=== PATIENT | female | born 1930 | race Caucasian/White ===

== ENCOUNTER 2016-07-14 02:45 | Emergency (ER) | payer MEDICARE ==
[~2016-07-14] VITALS: Ht 165.1 cm; Wt 63.6 kg
[~2016-07-14 02:45] MED LIST: ACET-2605 PO; BUPR150T12 PO; CHOL100045 PO; CIPR-231 PO; CLOP75TA3 PO; DONE10TA42 PO; FUR20 PO; ISOS30TA4 PO; LEVO112T4 PO; LISI-571 PO; LORA1TAB PO; MAGN400C PO; METF500T4 PO; METO50TA3 PO; NAM10 PO
[2016-07-14 02:46] VITALS: BP 159/78; PULSE 68; RESP 16; O2SAT 98
--- NOTE | 2016-07-14 02:54 | ED.REPORT ---
HPI-Chest Pain 40 and Over Date of Service Jul 14, 2016 ED Provider: Jose Veronica MD Patient is a 85 year old female with a history of diabetes mellitus, hyperlipidemia, hypertension, multiple myeloma, chronic kidney disease, and coronary artery disease s/p CABG 4x and cardiac stenting who presents to the ED after she awoke from sleep with substernal chest pressure at 1:30am this morning. She reports associated radiation of her pain into her left arm, with dizziness and light headedness. Her pain is improved on arrival to the ED, following consumption of 81mg Aspirin. She denies shortness of breath, nausea, vomiting, cough, fever, or chills. Patient reports having swelling in her left leg at baseline. Patient states that her symptoms are similar to when she previously had a CABG 4x performed. Nursing Notes Stated Complaint: CHEST PAIN/LEFT ARM PAIN Chief Complaint: Chest Pain Nursing Notes Reviewed: Yes Allergies: Coded Allergies: dipyridamole (Verified Allergy, Severe, 07/14/16) Sulfa (Sulfonamide Antibiotics) (Unverified Allergy, Unknown, 07/14/16) Uncoded Allergies: VASODILATING AGENTS (Allergy, Unknown, 05/02/04) Scheduled Acetaminophen/Diphenhydramine (Tylenol Pm Ex-Strength Caplet) 500 Mg-25 Mg Tablet 1 EACH PO HS Bupropion ER (Bupropion ER) 150 Mg Tablet.er 150 MG PO BID Cholecalciferol (Vitamin D3) (Vitamin D) 1,000 Unit Capsule 2,000 UNIT PO DAILY Ciprofloxacin (Cipro) 500 Mg Tablet 500 MG PO BID Clopidogrel Bisulfate (Plavix) 75 Mg Tablet 75 MG PO DAILY Donepezil (Donepezil) 10 Mg Tablet 10 MG PO HS Furosemide (Furosemide) 20 Mg Tab 20 MG PO DAILY Isosorbide MN ER (Isosorbide MN ER) 30 Mg Tab.er.24h 30 MG PO DAILY Levothyroxine (Levothyroxine) 112 Mcg Tablet 112 MCG PO DAILY Lisinopril (Lisinopril) 5 Mg Tablet 10 MG PO BID Magnesium Oxide (Magnesium) 400 Mg Capsule 400 MG PO HS Memantine (Namenda) 10 Mg Tablet 5 MG PO BID Metformin (Metformin) 500 Mg Tablet 500 MG PO BID Metoprolol Tartrate (Metoprolol Tartrate) 50 Mg Tablet 50 MG PO BID Scheduled PRN Lorazepam (Lorazepam) 1 Mg Tablet 1 MG PO HS PRN PRN For Insomnia General Time Seen by MD: 02:52 Chief Complaint Chest pain Hx Obtained From: Patient Arrived By: Walk-in Sudden in Onset?: Yes Onset Occurred: Just prior to arrival Symptom Duration: Since onset Location: : Substernal Quality: Painful Severity: Current: Mild Severity: Maximum: Moderate Recent Healthcare: No recent doctor visit, No recent hospitalization Similar Sx Previous: Yes Past Medical History Past Medical History Coronary artery disease, status post cardiac bypass in 1994 and stent placement in 2005. multiple myeloma chronic anemia thrombocytopenia hyperplastic colon polyps hypothyroidism anxiety chronic kidney disease Reports: Diabetes mellitus, Hyperlipidemia, Hypertension Reports: Thyroid disease Past Surgical History back surgery breast reduction surgery cardiac stents Reports: , CABG (4x), Hysterectomy Smoking History Never Smoker Social History Alcohol Use: Denies alcohol use Drug Use: Denies drug use Other Social History: Good social support, , Local resident Ambulatory Status Independent Review of Systems Constitutional: Denies: Chills, Fever Respiratory: Denies: Non-productive cough, Shortness of breath Cardiovascular: Reports: Chest pain, Denies: Dyspnea on exertion GI: Denies: Nausea, Vomiting Musculoskeletal: Reports: Extremity pain, Extremity swelling Neurologic: Reports: Dizziness, Lightheaded Complete sys rev & neg: except as marked. Physical Exam Initial Vital Signs Vital Signs (First) Date Time Temp Pulse Resp B/P Pulse Ox O2 Delivery O2 Flow Rate FiO2 07/14/16 02:46 36.4 68 16 159/78 98 Room Air Initial VS: Reviewed, Vital signs normal Head / Eyes: Atraumatic, Normocephalic, PERRL ENT: Conjunctiva normal, No scleral icterus Skin: Warm, Dry, No cyanosis Neurologic: Alert, Oriented, Nonfocal Psychiatric: Mood/affect normal, Behavior normal, Normal thought content General/Constitutional: Awake, Alert, No acute distress Respiratory / Chest: Breath sounds NL, Breath sounds = bilat, No respiratory distress, No rales, No rhonchi, No wheezing Cardiovascular: Heart rate NL, Regular rhythm, Heart sounds NL, No murmurs Abdomen: Soft, Non-tender Neck: Supple, No JVD Lower Extremity / Pelvis / MS: No deformity, Neurologic intact, Vascular intact trace ankle edema, left Upper Extremity / MS: No deformity, Neurologic intact, Vascular intact Interpretation & Diagnostics Lab Results Interpretation Result Diagram: 07/14/16 0304 07/14/16 0304 Test 07/14/16 03:04 07/14/16 06:15 White Blood Count 5.4th/mm3 (3.8-10.1) Red Blood Count 4.24mil/mm3 (3.90-5.20) Hemoglobin 12.6g/dL (12.0-15.6) Hematocrit 38.3% (35.0-46.0) Mean Corpuscular Volume 90.3fL (81-100) Mean Corpuscular Hemoglobin 29.7pg (27.0-35.0) Mean Corpuscular Hemoglobin Concent 32.9% (32.0-37.0) Red Cell Distribution Width 14.4% (12.3-15.4) Platelet Count 108bil/L (150-400) Neutrophils (%) (Auto) 50.7% (40-74) Lymphocytes (%) (Auto) 38.1% (14-46) Monocytes (%) (Auto) 8.7% (4-12) Eosinophils (%) (Auto) 1.7% (0-5) Basophils (%) (Auto) 0.6% (0-3) Sodium Level 138mEq/L (134-144) Potassium Level 4.3mEq/L (3.5-5.2) Chloride Level 97mEq/L (97-108) Carbon Dioxide Level 28mmol/L (18-29) Blood Urea Nitrogen 20mg/dL (8-27) Creatinine 0.94mg/dL (0.57-1.00) Estimat Glomerular Filtration Rate 81mL/min (>59) Glucose Level 154mg/dL (60-99) Calcium Level 9.5mg/dL (8.5-10.1) Magnesium Level 1.8mg/dL (1.6-2.6) Total Bilirubin 0.3mg/dL (0.0-1.2) Aspartate Amino Transf (AST/SGOT) 13U/L (0-50) Alanine Aminotransferase (ALT/SGPT) 9U/L (0-32) Alkaline Phosphatase 62U/L (25-165) Total Protein 6.1g/dL (6.4-8.4) Albumin 4.0g/dL (3.4-5.0) Hold [place] Top Tube Received (Received) Troponin T 0.010ug/L (0.0-0.011) Lab values outside NL range: no clinical significance. Lab Results Interpretation: Report on 2 negative. ECG Interpretation ECG Interpretation: Sinus rhythm, Rate 81 Ventricular bigeminy - effective rate in the 40s [place] prolonged MO interval Time: 02:55 Interpreted by: ED physician Repeat ECG: Repeat ECG unchanged (06:39) X-Ray Chest Interpretation Chest Xray Interpretation: Impression: No acute cardiopulmonary process. View: Portable Interpretation / Wet Read by: Wet read ED physician Re-Eval/Medical Decision Med Decision/Clinical Course 85-year-old female who presents with chest pain similar to what she has had in the past. It resolved quite promptly without treatment. EKG 2 and troponin 2 , chest x-ray are all negative. Source of Hx: Old records Time of Eval: 03:35 Patient Status: Condition resolved, Condition improved Re-Evaluation/Progress Note: Rechecked the patient. She states that her chest pain is now resolved and that she feels well. Discussed results of her EKG and chest x-ray. Will draw a repeat troponin at 5:30am and she will be discharged home if it is negative. Patient understands and agrees with this plan. All questions were addressed. Counseled Regarding: Diagnosis, Lab results, Need for follow-up, When/why to return to ED Discharge & Departure Primary Impression: Chest pain with low risk of acute coronary syndrome Disposition: Home Discharge Condition All VS Reviewed: Yes Condition: Stable Patient Instructions: Chest Pain (ED) Additional Instructions: Your cardiac testing to include chest x-ray, general labs and electrolytes, EKGs 2 and troponin cardiac enzyme 2 is all negative. You need to be reevaluated if you have recurrent discomfort. Return to the emergency room or follow-up with her primary provider as needed. Referrals: Lashaun Ortiz MD (PCP) Mary Lou Attestation Portions of this note were transcribed by Mirta Flores. I, Dr. Veronica personally performed the history, physical exam and medical decision-making; I reviewed and confirmed the accuracy of the information in the transcribed note. Signed by: Mary Lou Dawson, 07/14/2016 0609 copies to: Lashaun Ortiz MD, Howard L MD Jul 14, 2016 02:54 Mirta Flores Jul 14, 2016 03:03 CHELSEA AHMADI Jul 14, 2016 07:00
[2016-07-14 03:18] LABS: BASOPHILS % (AUTO) 0.6 % (0-3); EOSINOPHILS % (AUTO) 1.7 % (0-5); MONOCYTES % (AUTO) 8.7 % (4-12); Mean Corpuscular Hemoglobin 29.7 pg (27.0-35.0); Mean Corpuscular Volume 90.3 fL (81-100); NEUTROPHILS % (AUTO) 50.7 % (40-74); Platelet Count 108 bil/L (150-400)
[2016-07-14 03:43] LABS: TROPONIN T 0.01 ug/L (0.0-0.011)
[2016-07-14 03:57] LABS: Magnesium 1.8 mg/dL (1.6-2.6)
[2016-07-14 05:11] VITALS: BP 123/55; PULSE 68; RESP 17
[2016-07-14 07:26] VITALS: BP 117/60; PULSE 64; RESP 14; O2SAT 96
--- NOTE | 2016-07-14 08:41 | DRSVH ---
PROCEDURE: X-RAY CHEST ONE VIEW, PORTABLE ([id number]) INDICATIONS: CP TECHNIQUE: One view of the chest was acquired. COMPARISON: None. FINDINGS: Surgical changes and devices: Previous sternotomy for CABG procedure. secured entrance monitor leads are seen over the chest. Lungs and pleura: No pleural effusions or pneumothorax. Lungs are clear. Mediastinum: Mediastinal contours appear normal. Heart size is normal. Bones and chest wall: No suspicious bony lesions. Overlying soft tissues appear unremarkable. IMPRESSION: Acute disease is not seen in the chest. Cause of pain is not appreciated. Dictated by: Russ Haas M.D. on 07/14/2016 at 8:39 Approved by: Russ Haas M.D. on 07/14/2016 at 8:40
== END 2016-07-14 07:09 | disposition home or self-care (01) ==
LOC: SED 02:45
DX: R07.89 Other chest pain (principal); R42 Dizziness and giddiness; E11.22 Type 2 diabetes mellitus with diabetic chronic kidney disease; I12.9 Hypertensive chronic kidney disease with stage 1 through stage 4 chronic kidney disease, or unspecified chronic kidney disease; N18.9 Chronic kidney disease, unspecified; E78.5 Hyperlipidemia, unspecified; I25.10 Atherosclerotic heart disease of native coronary artery without angina pectoris; E03.9 Hypothyroidism, unspecified; Z95.1 Presence of aortocoronary bypass graft; Z95.818 Presence of other cardiac implants and grafts; Z85.79 Personal history of other malignant neoplasms of lymphoid, hematopoietic and related tissues; Z79.84 Long term (current) use of oral hypoglycemic drugs; Z88.8 Allergy status to other drugs, medicaments and biological substances; Z88.2 Allergy status to sulfonamides

== ENCOUNTER 2016-10-31 19:39 | Inpatient (IN) | payer MEDICARE ==
[~2016-10-31] VITALS: Ht 165.1 cm; Wt 66.2 kg
[2016-10-31] VITALS (7 sets, daily range): BP systolic 127–141; BP diastolic 43–79; PULSE 57–85; RESP 20–26; O2SAT 90–98
[2016-10-31] MEDS ORDERED: 0.9% Sodium Chloride 1,000 ML IV ONE ×2 (19:45→20:15)
--- NOTE | 2016-10-31 19:45 | ED.REPORT ---
HPI-General Illness Date of Service Oct 31, 2016 ED Provider: Tye Theodore MD The patient is a 85 year old female who presents to the ED via EMS from due to fever onset 2 days ago. The patient's granddaughter went to visit her at her care center and the pt had been in her bed for 2 days so she brought her to the , suspecting a UTI. At the , the patient's pulse ox was low and she had a fever. Via the granddaughter, the patient has not been eating or drinking. Associated symptoms include weakness, vomiting, fever, SOB, problem walking, cough, and sneezing. She had an episode of diarrhea in her pants last night. She is not able to walk by herself which is abnormal. She patient is normally very active and walks 2 miles a day. This level of decreased activity is very abnormal for her. The patient's has been ill with a recent cold including productive cough and sore throat. She denies dysuria and wears a pad in case of incontinence. Pt has a hx quadruple bypass, UTI, heart issues, and MA. Nursing Notes Stated Complaint: WEAKNESS Nursing Notes Reviewed: Yes Allergies: Coded Allergies: dipyridamole (Verified Allergy, Severe, 07/14/16) Sulfa (Sulfonamide Antibiotics) (Unverified Allergy, Unknown, 07/14/16) Uncoded Allergies: VASODILATING AGENTS (Allergy, Unknown, 05/02/04) Scheduled Acetaminophen/Diphenhydramine (Tylenol Pm Ex-Strength Caplet) 500 Mg-25 Mg Tablet 1 EACH PO HS Bupropion ER (Bupropion ER) 150 Mg Tablet.er 150 MG PO BID Cholecalciferol (Vitamin D3) (Vitamin D) 1,000 Unit Capsule 2,000 UNIT PO DAILY Ciprofloxacin (Cipro) 500 Mg Tablet 500 MG PO BID Clopidogrel Bisulfate (Plavix) 75 Mg Tablet 75 MG PO DAILY Donepezil (Donepezil) 10 Mg Tablet 10 MG PO HS Furosemide (Furosemide) 20 Mg Tab 20 MG PO DAILY Isosorbide MN ER (Isosorbide MN ER) 30 Mg Tab.er.24h 30 MG PO DAILY Levothyroxine (Levothyroxine) 112 Mcg Tablet 112 MCG PO DAILY Lisinopril (Lisinopril) 5 Mg Tablet 10 MG PO BID Magnesium Oxide (Magnesium) 400 Mg Capsule 400 MG PO HS Memantine (Namenda) 10 Mg Tablet 5 MG PO BID Metformin (Metformin) 500 Mg Tablet 500 MG PO BID Metoprolol Tartrate (Metoprolol Tartrate) 50 Mg Tablet 50 MG PO BID Scheduled PRN Lorazepam (Lorazepam) 1 Mg Tablet 1 MG PO HS PRN PRN For Insomnia General Time Seen by MD: 19:45 Chief Complaint Fever Hx Obtained From: Patient, Other family... (Granddaughter) Arrived By: Ambulance Sudden in Onset?: Yes Onset Occurred: 2 days ago Symptom Duration: Since onset Recent Healthcare: No recent doctor visit, No recent hospitalization Similar Sx Previous: No Past Medical History Past Medical History Coronary artery disease, status post cardiac bypass in 1994 and stent placement in 2005. multiple myeloma chronic anemia thrombocytopenia hyperplastic colon polyps hypothyroidism anxiety chronic kidney disease Reports: Diabetes mellitus, Hyperlipidemia, Hypertension Reports: Thyroid disease Past Surgical History back surgery breast reduction surgery cardiac stents Reports: , CABG, Hysterectomy Smoking History Never Smoker Social History Alcohol Use: Denies alcohol use Drug Use: Denies drug use Other Social History: Good social support, , Local resident Ambulatory Status Independent Review of Systems Full Review of Systems Constitutional: Reports: Fatigue, Fever, Malaise, Weakness - generalized Respiratory: Reports: Non-productive cough, Shortness of breath Cardiovascular: Denies: Chest pain GI: Reports: Diarrhea Skin: Denies Diaphoresis Neurologic: Denies: Change LOC, Confusion, Dizziness, Headache Complete sys rev & neg: except as marked. Physical Exam heart sounds are consistent with bigeminy pattern no murmurs strong distal pulses abdomen soft non tender dry mucous membranes no hx of dementia speech is fluent no lateralized neurological findings Vital Signs Vital Signs Date Time Temp Pulse Resp B/P Pulse Ox O2 Delivery O2 Flow Rate FiO2 10/31/16 22:01 94 Nasal Cannula 2 10/31/16 22:01 90 Room Air 10/31/16 21:57 85 22 141/43 96 Nasal Cannula 2 10/31/16 20:39 75 22 132/43 92 Room Air 10/31/16 19:57 36.9 79 21 128/79 94 Room Air Initial VS: Reviewed General/Constitutional: Awake, Alert, Cooperative Head / Eyes: Atraumatic, Normocephalic, PERRL, EOMI scalp and face atraumatic Interpretation & Diagnostics Lab Results Interpretation Result Diagram: 10/31/16199910/31/161999 Test 10/31/16 20:00 10/31/16 20:50 10/31/16 21:27 White Blood Count 9.1th/mm3 (3.8-10.1) Red Blood Count 3.98mil/mm3 (3.90-5.20) Hemoglobin 12.0g/dL (12.0-15.6) Hematocrit 36.1% (35.0-46.0) Mean Corpuscular Volume 90.7fL (81-100) Mean Corpuscular Hemoglobin 30.2pg (27.0-35.0) Mean Corpuscular Hemoglobin Concent 33.2% (32.0-37.0) Red Cell Distribution Width 13.8% (12.3-15.4) Platelet Count 92bil/L (150-400) Neutrophils (%) (Auto) 83.0% (40-74) Lymphocytes (%) (Auto) 9.0% (14-46) Monocytes (%) (Auto) 7.3% (4-12) Eosinophils (%) (Auto) 0.2% (0-5) Basophils (%) (Auto) 0.1% (0-3) Sodium Level 132mEq/L (134-144) Potassium Level 4.0mEq/L (3.5-5.2) Chloride Level 94mEq/L (97-108) Carbon Dioxide Level 25mmol/L (18-29) Blood Urea Nitrogen 23mg/dL (8-27) Creatinine 1.03mg/dL (0.57-1.00) Estimat Glomerular Filtration Rate 73mL/min (>59) Glucose Level 241mg/dL (60-99) Calcium Level 9.1mg/dL (8.5-10.1) Magnesium Level 1.7mg/dL (1.6-2.6) Total Bilirubin 0.8mg/dL (0.0-1.2) Aspartate Amino Transf (AST/SGOT) 15U/L (0-50) Alanine Aminotransferase (ALT/SGPT) 12U/L (0-32) Alkaline Phosphatase 52U/L (25-165) Troponin T < 0.010ug/L (0.0-0.011) Pro-B-Type Natriuretic Peptide 8081pg/mL (0-738) Total Protein 6.2g/dL (6.4-8.4) Albumin 3.4g/dL (3.4-5.0) Procalcitonin 2.48ng/mL (0.00-0.08) Lactic Acid Level 1.3mmol/L (0.4-2.0) Urine Color Yellow (YELLOW) Urine Appearance Clear (CLEAR,HAZY) Urine pH 5.5 (5.0-8.0) Urine Specific [place] 1.012 (1.003-1.035) Urine Protein Negativemg/dL (NEG,TRACE) Urine Glucose (UA) Negativemg/dL (NEGATIVE) Urine Ketones Negativemg/dL (NEGATIVE) Urine Occult Blood Negative (NEGATIVE) Urine Nitrite Negative (NEGATIVE) Urine Bilirubin Negative (NEGATIVE) Urine Urobilinogen Normalmg/dL (NORMAL) Urine Leukocyte Esterase Negative (NEGATIVE) Urine RBC 0-2/hpf (0-2) Urine WBC 0-5/hpf (0-5) Urine Epithelial Cells Few/hpf (NONE-MOD) Urine Crystals None seen (NONE SEEN) Urine Bacteria Few/hpf (NONE-FEW) Urine Hyaline Casts None/lpf (NONE) Urine Granular Casts None seen (NONE SEEN) Urine Waxy Casts None seen (NONE SEEN) Urine Red Blood Cell Casts None seen (NONE SEEN) Urine White Blood Cell Casts None seen (NONE SEEN) Urine Mucus Present (None Seen) Urine Trichomonas None seen (NONE SEEN) Urine Yeast None (NONE SEEN) Urinalysis Comment Renal epi seen Urine Culture Reflexed Not indicated ECG Interpretation ECG Interpretation: ventricular bigeminy when compared to prior 07/14/16 the pt is now more consistently in bigeminy however bigeminiy is not new Time: 20:26 Normal ECG Interpretation: Normal rate (90), No acute ischemic changes, Normal axis, Normal intervals X-Ray Chest Interpretation Chest Xray Interpretation: IMPRESSION: Left lower lobe pneumonia. Dictated by: Russ Haas M.D. on 10/31/2016 at 20:39 Approved by: Russ Haas M.D. on 10/31/2016 at 20:40 View: Portable Interpretation / Wet Read by: Interpret - Radiologist Re-Eval/Medical Decision Med Decision/Clinical Course The patient is a 85 year old female who presents to the ED via EMS from due to fever onset 2 days ago. The patient's granddaughter went to visit her at her care center and the pt had been in her bed for 2 days so she brought her to the , suspecting a UTI. At the , the patient's pulse ox was low and she had a fever. She was sent to the emergency department for further evaluation. Here in the emergency department the patient is afebrile and hemodynamically stable with examination as above. The patient was placed on pulse oximetry, 2 L of oxygen by nasal cannula and electronic device monitor. Laboratory studies notable as below: Glucose 236 CBC unremarkable CMP notable for sodium 132 BUN 23 Creatinine 1.03 Glucose 241 no significant electrolyte abnormality Troponin negative BNP 8081 Procalcitonin 2.48 UA unconvincing for UTI CHEST X-RAY IMPRESSION: Left lower lobe pneumonia. EKG was obtained and interpreted by myself as documented above. Overall presentation seems consistent with community-acquired pneumonia. Patient does not meet criteria for healthcare associated pneumonia. 2 sets of blood cultures were obtained and the patient was started on IV ceftriaxone and azithromycin. Given her borderline hypoxia on room air, advanced age and medical comorbidities I feel that she requires admission for further management. Pt was discussed with hospitalist who transferred in stable condition. Of note patient has been noted to be in ventricular bigeminy intermittently throughout emergency department course. Notably the patient has had a few episodes of what appears to be supraventricular tachycardia which quickly resolved. She will be maintained on cardiac monitoring. Time of Eval: 20:16 Re-Evaluation/Progress Note: Plan for IV fluids and Zofran. Time of Eval: 22:21 Re-Evaluation/Progress Note: Pt rechecked. Informed of diagnosis of pneumonia, lab results and chest x-ray. Plan to treat with Ceftriaxone and Azithromycin. Counseled Regarding: Diagnosis, Lab results, Need for follow-up, When/why to return to ED Discharge & Departure Primary Impression: Ventricular bigeminy Additional Impressions: Pneumonia Pneumonia type: due to unspecified organism Laterality: left Lung location : lower lobe of lung Qualified Code: J18.1 - Lobar pneumonia, unspecified organism Hypoxia Supraventricular tachycardia Respiratory distress Fever Fever type: unspecified Qualified Code: R50.9 - Fever, unspecified Disposition: Home Discharge Condition All VS Reviewed: Yes Condition: Stable Referrals: Lashaun Ortiz MD (PCP) Crit Care Except Billable Proc Time Spent: 105-134 minutes Services Performed: Patient management by me, Time spent at bedside, Reviewing test results, Reviewing imaging, Discussing patient care, Documentation in record, Time with fam/surrogate Scribe Attestation Portion of this note were transcribed by Jojo Martin. I, Dr. Theodore, personally performed the history, physical exam, and medical decision-making: I reviewed and confirmed the accuracy for the information in the transcribed note. Signed by: [place], 10/31/16 2300 copies to: Lashaun Ortiz MD, Beck O MD Oct 31, 2016 19:45 Jojo Martin Oct 31, 2016 20:12
[2016-10-31 20:22] LABS: BASOPHILS % (AUTO) 0.1 % (0-3); EOSINOPHILS % (AUTO) 0.2 % (0-5); MONOCYTES % (AUTO) 7.3 % (4-12)
[2016-10-31 20:25] LABS: Mean Corpuscular Hemoglobin 30.2 pg (27.0-35.0); Mean Corpuscular Volume 90.7 fL (81-100); Platelet Count 92 bil/L (150-400)
--- NOTE | 2016-10-31 20:42 | DRSVH ---
PROCEDURE: X-RAY CHEST, TWO VIEWS ([id number]) INDICATIONS: fever TECHNIQUE: 2 views of the chest were acquired. COMPARISON: None. FINDINGS: Surgical changes and devices: quality assurance monitor leads are seen over the chest. There are sternotomy wir es from previous CABG procedure. Lungs and pleura: No pleural effusions or pneumothorax. The increased markings seen through the hear t with indistinctness of the dome of the left hemidiaphragm. There are also abnormal markings overlyi ng the lower thoracic spine in the lateral view. Mediastinum: Mediastinal contours are normal. Heart size is normal. Bones and chest wall: No suspicious bony abnormalities. Soft tissues appear unremarkable. IMPRESSION: Left lower lobe pneumonia. Dictated by: Russ Haas M.D. on 10/31/2016 at 20:39 Approved by: Russ Haas M.D. on 10/31/2016 at 20:40
[2016-10-31 20:51] LABS: TROPONIN T < 0.010 ug/L (0.0-0.011)
[2016-10-31 22:01] LABS: APPEARANCE,URINE CLEAR (CLEAR,HAZY); COLOR,URINE YELLOW (YELLOW); PH,URINE 5.5 (5.0-8.0)
[2016-10-31 22:02] LABS: OCCULT BLOOD,URINE NEGATIVE (NEGATIVE); UROBILINOGEN,URINE NORMAL (NORMAL)
[2016-10-31] MEDS ORDERED: Alum-Mag Hydrox-Simeth 30 mL Suspension PO PRN (22:20)
[2016-10-31] MEDS ORDERED: Azithromycin Inj 500 MG in Dextrose 5% w/Vial Mate 250 ML IV ONE (22:20)
[2016-10-31] MEDS ORDERED: cefTRIAXone Inj 2,000 MG in Dextrose 5% Minibag Plus 50 ML IV ONE (22:20)
[2016-10-31] MEDS ORDERED: Polyethylene Glycol (PEG) 17 Gm Powder PO PRN (22:35)
--- NOTE | 2016-10-31 23:53 | PCM.HPMED ---
Subjective Date of Service Oct 31, 2016 Primary Provider: Admitting Physician: Efrain Kc MD Primary Care Physician: Lashaun Ortiz MD Attending Physician: Efrain Kc MD Admit Status: From the Emergency Department Chief Complaint: Generalized weakness and fever, with cough and shortness of breath History of Present Illness: The patient is a 85 year old female who presents to the ED via EMS from due to fever onset 2 days ago. The patient states that she is felt poorly for the last 2 days describing fever and chills, cough, body aches and generalized weakness. The patient's daughter who is in the room states that in the emergency department the patient felt that she was having muscle spasms in her back. The daughter states that her mother has not been eating or drinking much the last several days. The patient's reportedly also has very similar symptoms. The patient denies chest pain, abdominal pain, shortness of breath, dysuria, unusual bruising or bleeding, or increased swelling in her hands or feet. Per the ED report "The patient's granddaughter went to visit her at her care center and the pt had been in her bed for 2 days so she brought her to the , suspecting a UTI. At the , the patient's pulse ox was low and she had a fever. She had an episode of diarrhea in her pants last night. She is not able to walk by herself which is abnormal. She patient is normally very active and walks 2 miles a day. This level of decreased activity is very abnormal for her. The patient's has been ill with a recent cold including productive cough and sore throat. She denies dysuria and wears a pad in case of incontinence." Review of Systems: A comprehensive review of systems was obtained and all are negative except for what is included in the history of present illness. Allergies Coded Allergies: dipyridamole (Verified Allergy, Severe, 07/14/16) Sulfa (Sulfonamide Antibiotics) (Unverified Allergy, Unknown, 07/14/16) Uncoded Allergies: VASODILATING AGENTS (Allergy, Unknown, 05/02/04) Home Medications Acetaminophen/Diphenhydramine (Tylenol Pm Ex-Strength Caplet) 500 Mg-25 Mg Tablet 1 EACH PO HS Bupropion ER (Bupropion ER) 150 Mg Tablet.er 150 MG PO BID Cholecalciferol (Vitamin D3) (Vitamin D) 1,000 Unit Capsule 2,000 UNIT PO DAILY Ciprofloxacin (Cipro) 500 Mg Tablet 500 MG PO BID Clopidogrel Bisulfate (Plavix) 75 Mg Tablet 75 MG PO DAILY Donepezil (Donepezil) 10 Mg Tablet 10 MG PO HS Furosemide (Furosemide) 20 Mg Tab 20 MG PO DAILY Isosorbide MN ER (Isosorbide MN ER) 30 Mg Tab.er.24h 30 MG PO DAILY Levothyroxine (Levothyroxine) 112 Mcg Tablet 112 MCG PO DAILY Lisinopril (Lisinopril) 5 Mg Tablet 10 MG PO BID Magnesium Oxide (Magnesium) 400 Mg Capsule 400 MG PO HS Memantine (Namenda) 10 Mg Tablet 5 MG PO BID Metformin (Metformin) 500 Mg Tablet 500 MG PO BID Metoprolol Tartrate (Metoprolol Tartrate) 50 Mg Tablet 50 MG PO BID Lorazepam (Lorazepam) 1 Mg Tablet 1 MG PO HS PRN PRN For Insomnia PMH Hypothyroidism Chronic anemia GERD Hypertension Ischemic heart disease Hyperlipidemia Mitral valve and tricuspid valve regurgitation Aortic valve sclerosis Diverticulosis Diabetes mellitus type II without complications Presbyopia with bilateral cataracts Pseudophakia Actinic keratoses Osteoarthritis Multiple myeloma Dementia both vascular and degenerative Degenerative joint disease Depression and anxiety 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 Chronic renal insufficiency Surgical History Percutaneous intervention of the right coronary artery Four-vessel coronary artery bypass grafting 1992 section Hysterectomy Bilateral breast reduction Family History Brother had a stroke and of a myocardial infarction at 50 years old Father had coronary artery disease and of a heart attack at 50 years old Mother had stroke and heart attack and at 80 years old Sister had stroke and diabetes mellitus as well as myocardial infarction and at 45 years old Social History Occupation: retired Hx Alcohol Use: No Hx Substance Use: No Hx Tobacco Use: No Smoking Status: Never Smoker Exam Vital Signs Vital Sign - Last Date Time Temp Pulse Resp B/P Pulse Ox O2 Delivery O2 Flow Rate FiO2 10/31/16 23:31 36.9 57 20 141/64 98 Nasal Cannula 2.00 Exam Constitutional: Elderly female appearing younger than stated age in no acute distress lying comfortably in bed Eyes: Extraocular motion intact, Pupils are equal, round, and reactive to light , anicteric sclera noninjected conjunctiva HENT: Normocephalic and atraumatic, Oropharynx is with postnasal drip and moist without central cyanosis or cobblestoning mucosa Neck: Supple, no tracheal deviation, no thyromegaly Cardiovascular: Irregularly irregular. With systolic ejection murmur noted at right upper sternal border as well as left lower sternal border. Equal and intact distal pulses throughout. Pulmonary/Chest: Coarse breath sounds noted in the left lower lung montana clear in all other lung montana, Effort normal without respiratory distress. Abdominal: Soft. No distension. Nontender. There is no rebound or guarding. Bowel sounds present. Extremities: Without edema, cyanosis, clubbing Neurological: AOx3 Grossly nonfocal exam. Skin: Warm and dry Psychiatric: Appropriate mood and affect. Lab and Diagnostics Result Diagram: 10/31/16199910/31/161999 X-Rays, CTs and MRIs X-RAY CHEST, TWO VIEWS IMPRESSION: Left lower lobe pneumonia. Dictated by: Russ Haas M.D. on 10/31/2016 at 20:39 Assessment & Plan The patient is a 85 year old female who presents to the ED via EMS from urgent care due to fever, cough, generalized weakness onset of 2 days. # Community acquired pneumonia - Currently SIRS negative with heart rate of 85, respiratory rate of 22, temperature of 36.9, and white blood cell count of 9.1 however with increased neutrophil predominance 83% - Patient does not appear to be in acute respiratory distress, without end organ involvement, and has a lactic acid of 1.3 making sepsis less likely - Procalcitonin of 2.48 with chest x-ray showing left lower lobar pneumonia making bacterial infection most likely - Blood cultures and sputum cultures ordered, strep urine antigen and legionella urine antigen were ordered, nasal MRSA swab ordered, all are currently pending - The patient was started on ceftriaxone IV and azithromycin IV in the emergency department - Continue ceftriaxone 2 g IV daily - Continue azithromycin 500 mg IV daily - Incentive spirometry and a cappella device ordered # Presumed acute Ventricular bigeminy - Noted on ECG at time of admission - Mild hypo-Magnesium noted to be 1.7, repleted with 4 g of magnesium sulfate IV - Patient placed on telemetry, with nursing orders for when necessary ECG # Acute on chronic Thrombocytopenia - 92,000 platelets at admission - Baseline platelets since 2011 appear to be above 100,000 but still low - Likely decreased due to acute phase reactant nature platelets # Mild acute Hyponatremia - Sodium of 132 with chloride of 94 in the face of mildly elevated creatinine 1.03 - Likely due to dehydration / prerenal azotemia - Gentle fluid hydration at 80 mL per hour # Type II diabetes mellitus - Elevated blood glucose of 241 at admission - Reportedly [id number] - Hemoglobin A1c ordered - Heart healthy constant carb diet order - Correction scale lispro # Chronic hypothyroidism - Continue home levothyroxine 125 g daily # Chronic hypertension - Continue home Lisinopril 10 mg twice a day # Chronic dementia - Described in [facility] as both vascular and degenerative - Continue home memantine 5 mg twice a day, as well as Donepezil 10 mg at bedtime # Chronic depression - Continue home Wellbutrin ER 150 mg twice a day - Continue home citalopram 10 mg daily # Coronary artery disease - History of ischemic heart disease with CABG 4 and reported RCA percutaneous intervention - Continue home clopidogrel 75 mg daily - Continue home isosorbide mononitrate 30 mg daily - Patient does not appear to be on a chronic statin therapy and at this time it is uncertain why not - Lipid panel ordered and pending # History of cerebrovascular accident in the left coronal radiata - Continue home clopidogrel 75 mg daily DVT prophylaxis: Lovenox 40 mg subcutaneous daily GI prophylaxis: None indicated at this time Patient is admitted to inpatient status given presenting symptoms, likely diagnosis, possible complications, and required treatments expected length of stay is greater than 2 midnights. Pain Evaluation: Adequate Pain Control GI Prophylaxis: Not indicated VTE Prophylaxis Indicated: Meets Criteria for Anticoag Therapy VTE Prophylaxis: Sub-Q Enoxaparin, SCDs VTE Mechanical Devices: Intermittant Pneumatic CD Resuscitation Status: CPR: Attempt Resuscitation Attending Statement The patient was seen and examined together with Dr. Ochoa on 10/31 and I agree with the history, exam and plan as outlined in the note above. Daniel Lopez DO Oct 31, 2016 23:52 Efrain Kc MD Nov 01, 2016 04:06
[2016-11-01] VITALS (10 sets, daily range): BP systolic 104–177; BP diastolic 47–75; PULSE 45–82; RESP 16–20; O2SAT 94–98
[2016-11-01] MEDS ORDERED: FUR20 PO (01:06)
[2016-11-01] MEDS ORDERED: LEVO125T6 PO (01:06)
[2016-11-01] MEDS ORDERED: METF500T4 PO ×2 (01:06→09:47)
[2016-11-01] MEDS ORDERED: CLOP75TA28 PO (01:06)
[2016-11-01] MEDS ORDERED: LISI10TA PO (01:10)
[2016-11-01] MEDS ORDERED: ISOS30TA4 PO (01:10)
[2016-11-01] MEDS ORDERED: CITA10TA9 PO (01:10)
[2016-11-01] MEDS ORDERED: NAM10 PO (01:10)
[2016-11-01] MEDS ORDERED: METO-272 PO (01:10)
--- NOTE | 2016-11-01 02:34 | NUR ---
Admit Patient arrived in unit at 2305, able to side transfer on to bed. Up to BS with minimal assistance. Oriented to room by NAC. All belongings accounted for, daughter at bedside to confirm. Patient requested something to eat and drink, however a diet had not been submitted at that time. When a diet was approved a sandwich was ordered immediately and a nurse swallow evaluation was done. Denies pain at this time.
[2016-11-01] MEDS ORDERED: Glucose 40% Oral Gel 15 Gm Tube PO PRN (03:00)
[2016-11-01] MEDS ORDERED: Dextrose 10% 250 ML IV PRN (03:05)
[2016-11-01] MEDS ORDERED: Magnesium Sulf 4 Gm/100 mL H2O 4 GM in IV Premix 1 EACH IV ONE (03:05)
[2016-11-01] MEDS: Isosorbide Mononitrate 30 mg ER24 Tablet PO SCH (08:41)
[2016-11-01] MEDS: MeTOProlol XL 50 mg ER24 Tablet PO SCH (08:41)
[2016-11-01] MEDS: buPROPion SR 150 mg ER12 Tablet PO SCH ×2 (08:42→20:42)
[2016-11-01] MEDS: Insulin LISPRO 300 Unit/3 mL Inj SUBQ SCH ×4 (08:43→22:00)
[2016-11-01 09:00] LABS: BASOPHILS % (AUTO) 0.1 % (0-3); EOSINOPHILS % (AUTO) 0.4 % (0-5); MONOCYTES % (AUTO) 9.1 % (4-12); Mean Corpuscular Hemoglobin 29.8 pg (27.0-35.0); Mean Corpuscular Volume 91.7 fL (81-100); NEUTROPHILS % (AUTO) 71.7 % (40-74); Platelet Count 82 bil/L (150-400)
[2016-11-01 09:36] LABS: Magnesium 2.6 mg/dL (1.6-2.6); Phosphorus 2.9 mg/dL (2.5-4.9)
--- NOTE | 2016-11-01 09:51 | NUR ---
Med Rec Pt unable to recall any of her medications. Family member who assists with meds is not here. Verified all medications with [facility] records. Paged Hospitalist on Red Team to notify him of changes made.
--- NOTE | 2016-11-01 14:35 | PCM.PNMED ---
Subjective Date of Service Nov 01, 2016 Subjective pt feels miserable, kept stating that she wants to , as per daughter pt has depression but this is not normal for her pt c/o severe weakness, denied SOB, intermittently cough, sputum Exam Vital Signs Vital Sign - Last Date Time Temp Pulse Resp B/P Pulse Ox O2 Delivery O2 Flow Rate FiO2 11/01/16 11:38 76 96 Nasal Cannula 1.50 11/01/16 10:01 36.8 20 104/60 Intake and Output 10/31/16 10/31/16 11/01/16 Cumulative From/Thru 15:00 23:00 07:00 10/31/16 19:57 - 11/01/16 05:32 Intake Total 999 ml 314 ml 1313 ml Balance 999 ml 314 ml 1313 ml Intake IV Total 999 ml 314 ml 1313 ml Exam cachectic, frail elderly no JVD, MMM, no LAD RRR, nl s1, s2 no mrg CTAB, no w,c S,ND,NT,normoactive BS+ warm, no edema, pulses 2/2 IVs and Medications Medications Reviewed: Medications were reviewed in detail Lab and Diagnostics Result Diagram: 11/01/16 0845 11/01/16 0845 X-Rays, CTs and MRIs X-RAY CHEST, TWO VIEWS IMPRESSION: Left lower lobe pneumonia. Dictated by: Russ Haas M.D. on 10/31/2016 at 20:39 Assessment & Plan The patient is a 85 year old female who presents to the ED via EMS from urgent care due to fever, cough, generalized weakness onset of 2 days. # Community acquired pneumonia, SIRS negative, lactic acid of 1.3, although PCT 2.48 on admission. -awaits infectious w/u so far ngtd. Blood cultures and sputum cultures ordered , strep urine antigen and legionella urine antigen were ordered, nasal MRSA swab -continue ceftriaxone IV and azithromycin IV - Incentive spirometry and a cappella device ordered -O2 supplement as needed -trend fever curve, wbc, PCT #Acute on chronic Thrombocytopenia, POA, -92 to 82k today, will monitor for now, avoid heparin, dvt ppx with SCD # Chronic depression, POA, seemed worse from baseline -expressed feeling of depression today, encouraged patient to have more GOC -Continue home Wellbutrin ER 150 mg twice a day, Continue home citalopram 10 mg daily -appreciate SW eval, will consider psychiatric eval as well chronic, stable, resolved # Presumed acute Ventricular bigeminy on ECG at time of admission, HD stable, not clinically significant, continue on telemetry # Type II diabetes mellitus, glc in [id number], continue lispro. # Chronic hypothyroidism, Continue home levothyroxine 125 g daily # Chronic hypertension, Continue home Lisinopril 10 mg twice a day # Chronic dementia, Described in [facility] as both vascular and degenerative, Continue home memantine 5 mg twice a day, as well as Donepezil 10 mg at bedtime # Coronary artery disease, History of ischemic heart disease with CABG 4 and reported RCA percutaneous intervention - Continue home clopidogrel 75 mg daily - Continue home isosorbide mononitrate 30 mg daily - Patient does not appear to be on a chronic statin therapy and at this time it is uncertain why not - Lipid panel ordered and pending # History of cerebrovascular accident in the left coronal radiata, Continue home clopidogrel 75 mg daily DVT prophylaxis: SCD GI prophylaxis: None indicated at this time dispo: likely 2-3more days GI Prophylaxis: Not indicated VTE Prophylaxis: Sub-Q Enoxaparin, SCDs VTE Mechanical Devices: Intermittant Pneumatic CD Resuscitation Status: CPR: Attempt Resuscitation Time spent 65min Ron Hui MD Nov 01, 2016 14:35
--- NOTE | 2016-11-01 18:31 | NUR ---
Oxygenation/Anxiety/Tele No reports of chest pain/pressure/discomfort. Tele SR 60s-80s, per NOC patient having runs of PSVT into 140s -- per tele this has slowed down and is having mostly bigem/PVC pairs since approx 1200. No edema noted. Reports SOB at rest, SPO2 on 1-2LNC mid 90s, reports rare non productive cough. No reports of nausea, no emesis, denies abdominal pain. Up to BSC and voiding without complication. Small soft/loose BM. Alert and oriented to self, knows shes in a hospital but does not know year. PICHARDO, moderate decrease r/t oxygenation. Per family patient walks 2 miles per day and patient reports feeling moderately weak. PICHARDO, reports some numbness bilateral LE. Patient very anxious this AM, stating she "feels like she's dying" and that "she just wants to go out quickly", tearful. As shift progressed, patient's mood improved. No pain. Int:
[2016-11-01] MEDS: cefTRIAXone Inj 2,000 MG in Dextrose 5% Minibag Plus 50 ML IV SCH (20:39)
[2016-11-01] MEDS ORDERED: 0.9% Sodium Chloride 250 ML ONE (20:51)
[2016-11-01] MEDS ORDERED: Azithromycin Inj 500 MG in Dextrose 5% w/Vial Mate 250 ML IV SCH (21:00)
[2016-11-01] MEDS: Ondansetron 2 mg/mL 2 mL Inj IVPUSH PRN (23:44)
[2016-11-02] VITALS (8 sets, daily range): BP systolic 118–166; BP diastolic 54–82; PULSE 60–84; RESP 16–20; O2SAT 90–99
--- NOTE | 2016-11-02 00:22 | NUR ---
nausea/diarrhea/SOB family reported that pt had a sudden feeling of hot flush and stomach upset and rushed to the BSC. While this was happening she became very SOB and they family called the nurse. nurse assessed pt, whose VS were stable, sp02 96% on 1L 02. tele said pt was SR 80s with no recent abnormal readings. pt had a large amount of loose stool. pt still complained of increased SOB saying "I can't breathe" and was breathing shallowly. nurse called RT who came and assessed and said her lungs were clear. at that time pt had another episode of nausea and vomited once. at this time pts azithromycin IV had been running for 45 min. nurse stopped the antibiotic. 4mg of IV zofran was given for nausea. MD was notified who said he did not believe she was having an allergic reaction to the antibiotics and to just continue to monitor. pt started feeling better about 30min after the incident started. color has come back to pts face and she know longer appears diaphoretic. she is currently resting in bed with a cool wash rag and the lights dimmed. pt and family did not want to finish the azithromycin dose tonight. will continue to monitor.
[2016-11-02] MEDS: Ondansetron 2 mg/mL 2 mL Inj IVPUSH PRN (04:07)
--- NOTE | 2016-11-02 05:43 | NUR ---
pt had one more episode of hot flashes and stomach upset this morning. she was given IV zofran and helped up to the BSC. she had a small amount of loose stool and felt immediately better. resting in bed comfortably at this time.
[2016-11-02 05:57] LABS: BASOPHILS % (AUTO) 0.1 % (0-3); EOSINOPHILS % (AUTO) 0.1 % (0-5); MONOCYTES % (AUTO) 7.6 % (4-12); Mean Corpuscular Volume 90.6 fL (81-100); NEUTROPHILS % (AUTO) 80.6 % (40-74); Platelet Count 84 bil/L (150-400)
[2016-11-02 06:27] LABS: Magnesium 1.9 mg/dL (1.6-2.6); Phosphorus 3.4 mg/dL (2.5-4.9)
[2016-11-02] MEDS ORDERED: Dextrose 5% 0.45% NaCl 1,000 ML IV SCH (08:15)
[2016-11-02] MEDS: buPROPion SR 150 mg ER12 Tablet PO SCH ×2 (09:51→22:18)
[2016-11-02] MEDS: Isosorbide Mononitrate 30 mg ER24 Tablet PO SCH (09:55)
[2016-11-02] MEDS: MeTOProlol XL 50 mg ER24 Tablet PO SCH (09:56)
[2016-11-02] MEDS: Insulin LISPRO 300 Unit/3 mL Inj SUBQ SCH ×4 (10:10→21:47)
--- NOTE | 2016-11-02 10:25 | PCM.PNMED ---
Subjective Date of Service Nov 02, 2016 Subjective pt couldn't tolerate azithromycin, had nausea, so it was stopped as per daughter, pt had 2 loose stools, breathing okay, didn't complain of cough, sputum, SOB still weak. Exam Vital Signs Vital Sign - Last Date Time Temp Pulse Resp B/P Pulse Ox O2 Delivery O2 Flow Rate FiO2 11/02/16 09:58 60 11/02/16 09:50 20 96 Room Air 11/02/16 09:35 36.7 166/82 11/02/16 05:05 2.00 Intake and Output 11/01/16 11/01/16 11/02/16 Cumulative From/Thru 15:00 23:00 07:00 10/31/16 19:57 - 11/02/16 06:58 Intake Total 800 ml 770 ml 2883 ml Output Total 400 ml 1425 ml 1825 ml Balance 400 ml -655 ml 1058 ml Intake Oral 800 ml 500 ml 1300 ml IV Total 270 ml 1583 ml Output Urine Total 400 ml 1225 ml 1625 ml Stool Total 200 ml 200 ml # Voids 2 2 # Bowel Movements 1 2 3 Exam cachectic, frail elderly no JVD, MMM, no LAD RRR, nl s1, s2 no mrg CTAB, no w,c S,ND,NT,normoactive BS+ warm, no edema, pulses 2/2 IVs and Medications Medications Reviewed: Medications were reviewed in detail Lab and Diagnostics Result Diagram: 11/02/16 0510 11/02/16 0510 X-Rays, CTs and MRIs X-RAY CHEST, TWO VIEWS IMPRESSION: Left lower lobe pneumonia. Dictated by: Russ Haas M.D. on 10/31/2016 at 20:39 Assessment & Plan The patient is a 85 year old female who presents to the ED via EMS from urgent care due to fever, cough, generalized weakness onset of 2 days. #new onset diarrhea, nausea episode, developed 11/01-, likely medicine induced from azithromycin, probable c.diff. -will get stool PCR, monitor stool frequency -zofran prn for n/v # Community acquired pneumonia, SIRS negative, lactic acid of 1.3, although PCT 2.48 on admission. -awaits infectious w/u so far ngtd. Blood cultures and sputum cultures ordered , strep urine antigen and legionella urine antigen were ordered, nasal MRSA swab -started Rocephin/azithromycin, continue ceftriaxone IV, stopped azithromycin as pt couldn't tolerate - Incentive spirometry and a cappella device ordered -O2 supplement as needed -trend fever curve, wbc, PCT #Acute on chronic Thrombocytopenia, POA, -stable 84k, will monitor for now, avoid heparin, dvt ppx with SCD # Chronic depression, POA, seemed worse from baseline -expressed feeling of depression today, encouraged patient to have more GOC -Continue home Wellbutrin ER 150 mg twice a day, Continue home citalopram 10 mg daily -appreciate SW eval, will consider psychiatric eval as well chronic, stable, resolved # Presumed acute Ventricular bigeminy on ECG at time of admission, HD stable, not clinically significant, continue on telemetry # Type II diabetes mellitus, glc in [id number], continue lispro. # Chronic hypothyroidism, Continue home levothyroxine 125 g daily # Chronic hypertension, Continue home Lisinopril 10 mg twice a day # Chronic dementia, Described in [facility] as both vascular and degenerative, Continue home memantine 5 mg twice a day, as well as Donepezil 10 mg at bedtime # Coronary artery disease, History of ischemic heart disease with CABG 4 and reported RCA percutaneous intervention - Continue home clopidogrel 75 mg daily - Continue home isosorbide mononitrate 30 mg daily - Patient does not appear to be on a chronic statin therapy and at this time it is uncertain why not - Lipid panel ordered and pending # History of cerebrovascular accident in the left coronal radiata, Continue home clopidogrel 75 mg daily DVT prophylaxis: SCD GI prophylaxis: None indicated at this time dispo: likely1-2more days, appreciate PT, probable SNF given weakness GI Prophylaxis: Not indicated VTE Prophylaxis: Sub-Q Enoxaparin, SCDs VTE Mechanical Devices: Intermittant Pneumatic CD Resuscitation Status: CPR: Attempt Resuscitation Time spent 35min Ron Hui MD Nov 02, 2016 10:25
--- NOTE | 2016-11-02 12:32 | NUR ---
Social Work:Initial Assessment D: EMR reviewed. Pt is an 85 y/o female admitted for left lower lobe pneumonia per H&P. VLAD met with pt and family at bedside to conduct initial assessment. Pt was alert and oriented x3 but had some confusion answering questions. Pt gave consent to discuss pt's discharge plan and healthcare with family in the room. Pt also gave verbal consent to coordinate discharge plan with daughter/DPOA, Sujey Quiñonez, . VLAD met with pt's daughter Sujey and granddaughter Amelia. VLAD explained role and wrote phone number on white board. VLAD confirmed pt has completed DPOA/advanced directive ppw and encouraged pt to provide a copy to the hospital. Pt has no hx of HH or a SNF. Pt does not have LTC insurance or VA benefits. Pt needs and receives assistance from her spouse/family with ADLs including meal prep, medication management, chores, and transportation. Pt uses a FWW to ambulate. Pt does not own or use any other DME. Pt does not drive. Pt is independent at baseline with some assistance with ADLs. Pt's family states that pt's spouse provides support/care for pt with ADLs and transportation. Pt lives in a single-story home with 3 steps to enter with her spouse in [facility]. Pt's family also stated that pt's spouse is sick at this time. VLAD confirmed that pt's daughter Sujey will help care for pt once pt discharges until pt's spouse is better and able to provide support at home. 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 VLAD provided Senior Resource Guide. Pt's family also suggested concern about pt's ability to manage medication/vitals once discharged and asked about home health. VLAD stated that home health could potentially be covered by insurance if the MD determined a HH RN was medically necessary. VLAD sent cook page to MD requesting MD to review pt for HH needs and update VLAD. Pt's daughter Sujey confirmed she will provide transport home via POV when pt is medically stable. VLAD will follow pt and MD recommendations to determine if a HH RN is medically necessary. Pt confirms she is homebound. A: Pt who uses a FWW at baseline and receives assistance with some ADLs from her spouse. P: Pt's daughter Sujey confirmed she will provide transport home via POV when pt is medically stable. SW will follow pt and MD recommendations to determine if a HH RN is medically necessary. Pt confirms she is homebound. PUAM Serra Addendum: 11/02/16 at 1243 by ZACK ROOT SS Amended: Links added. Addendum: 11/02/16 at 1246 by ZACK ROOT SS SW received MD order to discuss suicidal ideation with pt. SW asked if pt was feeling suicidal, pt stated "no, I was just not feeling well because I was sick but now I am better." SW asked if pt was thinking of harming herself or others, pt stated "no (laughed) I would never think about doing that to my family." Pt's daughter Sujey and savanah Cisneros were present during conversation and confirmed they don't believe pt is suicidal or has been suicidal. PUMA Serra
--- NOTE | 2016-11-02 15:02 | NUR ---
Evaluation completed. Please go to "Notes" then click on "Assessments and Notes" (bottom left corner of screen). Then select appropriate discipline tab on top of screen.
--- NOTE | 2016-11-02 18:30 | NUR ---
Mentation Pt. this morning was anxious and agitated stating that everything was "staged and no one knows what is going on. They want to keep me here." Pt. was reassured that she is here for pneumonia and we want to help her get better so she can go home. Pt this afternoon appeared less anxious and her agitation appeared to have resolved on its own. Pt. was more cooperative and pleasant with care but seems to have a very forgetful memory. Family at bedside throughout shift and will continue to monitor.
[2016-11-03] VITALS (14 sets, daily range): BP systolic 110–158; BP diastolic 60–83; PULSE 65–83; RESP 16–22; O2SAT 93–99
[2016-11-03] MEDS: Ondansetron 2 mg/mL 2 mL Inj IVPUSH PRN ×2 (00:18→23:16)
[2016-11-03] MEDS: cefTRIAXone Inj 2,000 MG in Dextrose 5% Minibag Plus 50 ML IV SCH ×2 (00:35→22:15)
--- NOTE | 2016-11-03 06:46 | NUR ---
anxiety / agitation. Patient very anxious and at times confused overnight. States she is going to and that we must all be quiet so she is not overstimulated. VSS, diaphoretic with blood glucose check 180. She thinks they may be "hot flashes", remains afebrile. Daughter at bedside believes mentation changes are due to possibly Wellbutrin or aricept. She wants her mother to stop these meds. Nausea X1 and Zofran given. Patient then finally able to sleep.
--- NOTE | 2016-11-03 06:54 | NUR ---
A-fib Tele monitor called to inform RN of patient converting to A-fib briefly with Hr 160 @ 2200. Remained asymptomatic then converted back to sinus 80's within minutes.
[2016-11-03 08:01] LABS: BASOPHILS % (AUTO) 0.1 % (0-3); EOSINOPHILS % (AUTO) 0 % (0-5); MONOCYTES % (AUTO) 4.9 % (4-12); Mean Corpuscular Hemoglobin 29.7 pg (27.0-35.0); Mean Corpuscular Volume 89.7 fL (81-100); NEUTROPHILS % (AUTO) 86.5 % (40-74); Platelet Count 119 bil/L (150-400)
[2016-11-03] MEDS: MeTOProlol XL 50 mg ER24 Tablet PO SCH (08:10)
[2016-11-03] MEDS: Isosorbide Mononitrate 30 mg ER24 Tablet PO SCH (08:11)
[2016-11-03] MEDS: buPROPion SR 150 mg ER12 Tablet PO SCH (08:13)
[2016-11-03] MEDS: Insulin LISPRO 300 Unit/3 mL Inj SUBQ SCH ×4 (08:17→22:24)
[2016-11-03 08:53] LABS: Magnesium 1.8 mg/dL (1.6-2.6); Phosphorus 3.8 mg/dL (2.5-4.9)
--- NOTE | 2016-11-03 09:06 | NUR ---
MACIEJ signed by pt's daughter/DPOA Sujey at bedside
[2016-11-03] MEDS ORDERED: Magnesium Sulf 2 Gm/50mL Water 2 GM in IV Premix 1 EACH IV ONE (09:20)
--- NOTE | 2016-11-03 09:25 | PCM.PNMED ---
Subjective Date of Service Nov 03, 2016 Subjective pt looked stronger, more communicative, walked with PT yesterdasy hallway family agreed HH, RN, PT pt had loose stools, stool PCR in progress. still has productive greenish, yellowish sputum, had subjective SOB this AM but breathing well, appetite is poor still Exam Vital Signs Vital Sign - Last Date Time Temp Pulse Resp B/P Pulse Ox O2 Delivery O2 Flow Rate FiO2 11/03/16 08:40 80 11/03/16 08:03 36.5 18 145/78 95 Room Air 11/02/16 05:05 2.00 Intake and Output 11/02/16 11/02/16 11/03/16 Cumulative From/Thru 15:00 23:00 07:00 10/31/16 19:57 - 11/03/16 06:55 Intake Total 536 ml 2006 ml 5425 ml Output Total 800 ml 600 ml 3225 ml Balance -264 ml 1406 ml 2200 ml Intake Oral 536 ml 100 ml 1936 ml IV Total 1906 ml 3489 ml Output Urine Total 800 ml 600 ml 3025 ml Stool Total 200 ml # Voids 2 # Bowel Movements 2 1 6 Exam cachectic, frail elderly no JVD, MMM, no LAD RRR, nl s1, s2 no mrg mild crackles diffusely, decreased BS S,ND,NT,normoactive BS+ warm, no edema, pulses 2/2 IVs and Medications Medications Reviewed: Medications were reviewed in detail Lab and Diagnostics Result Diagram: 11/03/16 0749 11/03/16 0749 X-Rays, CTs and MRIs X-RAY CHEST, TWO VIEWS IMPRESSION: Left lower lobe pneumonia. Dictated by: Russ Haas M.D. on 10/31/2016 at 20:39 Assessment & Plan The patient is a 85 year old female who presents to the ED via EMS from urgent care due to fever, cough, generalized weakness onset of 2 days. #new onset hypochloremic hyponatremia, 11/02-, likely due to GI fluid loss, -d/c 1/2 NS today, will give NS 500bolus, trend CMP tomorrow AM #new onset diarrhea, nausea episode, developed 11/01-, likely medicine induced from azithromycin, probable c.diff. -awaits stool PCR, monitor stool frequency -zofran prn for n/v # Community acquired pneumonia, SIRS negative, lactic acid of 1.3, although PCT 2.48 on admission. -clinically improving, remained afebrlie, PCT trending down. -awaits infectious w/u so far ngtd. Blood cultures and sputum cultures ordered , strep urine antigen and legionella urine antigen were ordered, nasal MRSA swab -started Rocephin/azithromycin, continue ceftriaxone IV, stopped azithromycin as pt couldn't tolerate, given intolerability of quinolones, consider Amoxacillin 1g tid on d/c - Incentive spirometry and a cappella device ordered -O2 supplement as needed -trend fever curve, wbc, PCT #Acute on chronic Thrombocytopenia, POA, -stable 100k, will monitor for now, avoid heparin, dvt ppx with SCD # Chronic depression, POA, seemed worse from baseline -expressed feeling of depression on admission, encouraged patient.family to have more clear GOC -d.c Wellbutrin ER 150 mg bid as per daughter, this makes her confused, psychotic, continue home citalopram 10 mg daily -appreciate SW eval, will consider psychiatric eval as well chronic, stable, resolved # Presumed acute Ventricular bigeminy on ECG at time of admission, HD stable, not clinically significant, continue on telemetry # Type II diabetes mellitus, glc in , continue lispro. # Chronic hypothyroidism, Continue home levothyroxine 125 g daily # Chronic hypertension, Continue home Lisinopril 10 mg twice a day # Chronic dementia, Described in [facility] as both vascular and degenerative, Continue home memantine 5 mg twice a day, as well as Donepezil 10 mg at bedtime # Coronary artery disease, History of ischemic heart disease with CABG 4 and reported RCA percutaneous intervention - Continue home clopidogrel 75 mg daily - Continue home isosorbide mononitrate 30 mg daily - Patient does not appear to be on a chronic statin therapy and at this time it is uncertain why not - Lipid panel ordered and pending # History of cerebrovascular accident in the left coronal radiata, Continue home clopidogrel 75 mg daily DVT prophylaxis: SCD GI prophylaxis: None indicated at this time dispo: likely1-2more days, home with [facility], RN PT GI Prophylaxis: Not indicated VTE Prophylaxis: Sub-Q Enoxaparin, SCDs VTE Mechanical Devices: Intermittant Pneumatic CD Resuscitation Status: CPR: Attempt Resuscitation Time spent 35min Ron Hui MD Nov 03, 2016 09:25
[2016-11-03] MEDS ORDERED: 0.9% Sodium Chloride 500 ML IV ONE (09:30)
[2016-11-03] MEDS: Albuterol 2.5 mg/3 mL Inhalation Solution NEB PRN ×3 (10:08→18:15)
--- NOTE | 2016-11-03 11:10 | DRSVH ---
PROCEDURE: X-RAY CHEST ONE VIEW, PORTABLE ([id number]) INDICATIONS: dyspnea probable fluid overload TECHNIQUE: One view of the chest was acquired. COMPARISON: [facility], CR, XR CHEST 2VW, 10/31/2016, 20:04. FINDINGS: Surgical changes and devices: Sternotomy wires and CABG clips. Lungs and pleura: No definite pleural effusions or pneumothorax. There is interval development of by basilar consolidative opacities, and worsening of retrocardiac consolidation since 10/31/16 Mediastinum: Mediastinal contours appear normal. Heart size is normal. Bones and chest wall: No suspicious bony lesions. Overlying soft tissues appear unremarkable. Bilat eral shoulder joint degeneration. Left shoulder calcific tendinitis IMPRESSION: Worsening bibasilar and retrocardiac consolidation since 10/31/16. Dictated by: Charanjit Diaz M.D. on 11/03/2016 at 11:00 Approved by: Charanjit Diaz M.D. on 11/03/2016 at 11:08
--- NOTE | 2016-11-03 13:49 | NUR ---
Social Work: Continued Discharge Planning D: EMR reviewed. Pt is on day 3 of hospitalization. VLAD received MD order to coordinate HH for RN PT 3x/week. VLAD met with pt and daughter/DPMARY Rm at bedside to provide HH choice list. Pt and daughter did not have a preference and asked SW to choose HH agency. VLAD selected [facility] based on the [facility] Rotating vendor calendar. SW placed referral call to [facility] and left voicemail with pt's information. SW faxed face sheet to [facility]. SW placed F2F in pt's chart and notified MD to complete prior to AM multi-disciplinary rounds 11/04. MD confirmed this would be completed. SW to fax completed F2F to [facility] 11/04. SW asked [facility] to call and confirm they received referral and fax. VLAD provided access to [facility]. SW will continue to follow. A: Pt for whom HH RN PT 3x/week has been deemed medically necessary. P: SW to confirm [facility] has received referral and fax F2F once completed. made aware that F2F is in chart and will need to be completed before discharge. confirmed he will complete F2F before AM multi-disciplinary rounds 11/04. VLAD will continue to follow. PUMA Serra
--- NOTE | 2016-11-03 18:22 | NUR ---
Mentation/Anxiety & SOB At about 1415 Pt. stated "I think I am hallucinating because I hear voices, but I think its because I forgot I turned off the TV. I hear the voices when it is on. I also remember seeing you walk into the room but I forgot you did so when I saw you by the computer so I thought I was hallucinating again when I saw a body figure there." I reassured Pt. that I did walk in and that she was not hallucinating. Pt. on shift had two episodes of SOB when too much family is around. This afternoon Pt. states feeling SOB and requested her oxymask be put on. Prior to putting oxymask on at 1L Pts. SpO2 was 96% at RA. Pt. confided in me and stated "let my family know that when there is too much noise too much energy I cannot control the energy and I get scared and I feel like I cannot breath well. I would prefer for them to leave and stop by when there is a few of them." I relayed that information to Pts. daughter and Pts. daughter said she would let the rest of the family know. Pt. at this time is breathing comfortably after her breathing her treatment with no more c/o SOB. I also instructed Pt. to try and perform pursed lip breathing when she feels to much "energy and excitement" to control her breathing. I demonstrated for Pt. and Pt. demonstrated pursed lip breathing back to me to show she understood. Pt. has one daughter in her room at this time. Will continue to monitor.
[2016-11-04] VITALS (8 sets, daily range): BP systolic 117–155; BP diastolic 55–84; PULSE 70–86; RESP 15–18; O2SAT 94–96
[2016-11-04] MEDS: Ondansetron 2 mg/mL 2 mL Inj IVPUSH PRN ×3 (04:15→22:15)
[2016-11-04 05:49] LABS: BASOPHILS % (AUTO) 0.1 % (0-3); EOSINOPHILS % (AUTO) 0.4 % (0-5); MONOCYTES % (AUTO) 11.6 % (4-12); Mean Corpuscular Hemoglobin 29.8 pg (27.0-35.0); Mean Corpuscular Volume 88.4 fL (81-100); NEUTROPHILS % (AUTO) 74.9 % (40-74); Platelet Count 134 bil/L (150-400)
--- NOTE | 2016-11-04 05:51 | NUR ---
Restlessness / low urine output Pt very anxious and restless through evening; ambulated hallway with front wheeled walker. Complains of "creepy feeling" that originates in feet and travels up legs, minimized with walking. Mild nausea resolved with Zofran. Tylenol given for leg discomfort, pt observed sleeping off and on. Considered if retention was source of restlessness, but post void residual <100 ml. Low urine output through night, notified. Hourly rounding ongoing.
[2016-11-04 06:21] LABS: Magnesium 2.1 mg/dL (1.6-2.6); Phosphorus 3.6 mg/dL (2.5-4.9)
[2016-11-04] MEDS ORDERED: LORazepam 1 mg Tablet PO PRN (09:25)
[2016-11-04] MEDS: Isosorbide Mononitrate 30 mg ER24 Tablet PO SCH (09:59)
[2016-11-04] MEDS: MeTOProlol XL 50 mg ER24 Tablet PO SCH (09:59)
[2016-11-04] MEDS: Insulin LISPRO 300 Unit/3 mL Inj SUBQ SCH ×4 (10:02→22:00)
--- NOTE | 2016-11-04 10:16 | NUR ---
Social Work: Readiness for Discharge D: EMR reviewed. Pt is on day 4 of hospitalization. VLAD received T/C from Nelda at [facility] confirming that pt is accepted and [facility] will open for RN PT 3x/week the day after pt discharges. Nelda confirmed she will visit pt in pt's room today at 1040. Nelda also confirmed she will pick-up F2F from office. VLAD made copy and placed in hard chart. VLAD spoke with Adan (pt's daughter) in pt's room to confirm pt has been accepted with [facility] and Nelda will come visit the family and pt today at 1040. Pt and family agreeable to plan. A: Pt for whom RN PT 3x/week has been deemed medically necessary. P: Pt to discharge home via POV and open with [facility] for RN PT 3x/week. Nelda from [facility] will pick-up completed F2F from and visit pt and family at 1040 today. VLAD will amend note to confirm F2F has been retrieved. VLAD placed copy of F2F in hard chart. Pt to transport home with family via POV. VLAD will continue to follow. PUMA Serra Addendum: 11/04/16 at 1049 by ZACK ROOT Nelda from [facility] retrieved F2F and met with pt and family at 1040 this morning. Pt is set to open with [facility] RN PT x3/week. PUMA Serra
[2016-11-04] MEDS: LORazepam 0.5 mg Tablet PO PRN (10:19)
--- NOTE | 2016-11-04 16:30 | PCM.PNMED ---
Subjective Date of Service Nov 04, 2016 Subjective Patient without complaints of dyspnea, chest pain nausea or vomiting. His anxiety episodes of numbness in her feet. As soon as I start mentioning medications including lorazepam which she had been on previously she becomes anxious saying "I do not want that". Her daughter who is at the bedside feels like she does well on it and needs it. Exam Vital Signs Vital Sign - Last Date Time Temp Pulse Resp B/P Pulse Ox O2 Delivery O2 Flow Rate FiO2 11/04/16 16:01 36.3 77 15 123/55 94 Room Air 11/03/16 10:08 2.00 Intake and Output 11/03/16 11/03/16 11/04/16 Cumulative From/Thru 15:00 23:00 07:00 10/31/16 19:57 - 11/04/16 06:49 Intake Total 920 ml 765 ml 7110 ml Output Total 550 ml 175 ml 3950 ml Balance 370 ml 590 ml 3160 ml Intake Oral 920 ml 700 ml 3556 ml IV Total 65 ml 3554 ml Output Urine Total 550 ml 175 ml 3750 ml Stool Total 200 ml # Voids 2 # Bowel Movements 1 1 8 Exam Gen.- A+ O 2 no apparent distress. Thin elderly female Eyes- open conjunctiva clear, pupils equal nonicteric Mouth-lips normal ENT- ears normal, nose normal Neck- supple/trach midline CVS- RRR no murmur or gallop Lungs- CTA GI- NABS/NT soft Musc- moving 4 no obvious deformity Neuro- cranial nerves II through XII intact to gross examination, nonfocal Left foot droop Skin- warm and dry, no rashes/lesions/wounds noted Psych- pleasant but anxious Lab and Diagnostics Result Diagram: 11/04/16 0510 11/04/16 0510 X-Rays, CTs and MRIs X-RAY CHEST, TWO VIEWS IMPRESSION: Left lower lobe pneumonia. Dictated by: Russ Haas M.D. on 10/31/2016 at 20:39 Assessment & Plan 85 year old female admitted 10/31 for fever, cough, generalized weakness onset of 2 days. 11/04 meeting patient for first time she is handling the hallway she has a left foot drop she is on room air. Most concerning his hyponatremia stopping furosemide, resuming her lorazepam as she has it at home and looking for discharge perhaps 11/05. Patient is on multiple medications that may aggravate hyponatremia. # hyponatremia, 11/02-, likely due to GI fluid loss, stop D5 water a few days ago, stopping furosemide today, follow-up in a.m. #new onset diarrhea, nausea episode, developed 11/01-, results 11/04 -likely medicine induced from azithromycin, PCR and C. difficile negative # Community acquired pneumonia, SIRS negative, lactic acid of 1.3, although PCT 2.48 on admission. -clinically improving, remained afebrlie, PCT trending down. -awaits infectious w/u so far ngtd. Blood cultures and sputum cultures ordered , strep urine antigen and legionella urine antigen negative, nasal MRSA swab negative -started Rocephin/azithromycin, continue ceftriaxone IV, stopped azithromycin as pt couldn't tolerate, given intolerability of quinolones, consider Amoxacillin 1g tid on d/c - Incentive spirometry and a cappella device ordered -O2 supplement as needed #Acute on chronic Thrombocytopenia, POA, -stable 100k, will monitor for now, avoid heparin, dvt ppx with SCD #Anxiety/depression, POA, seemed worse from baseline -expressed feeling of depression on admission, encouraged patient.family to have more clear GOC -d.c Wellbutrin ER 150 mg bid as per daughter, this makes her confused, psychotic, continue home citalopram 10 mg daily -Resumed lorazepam 11/04 # Type II diabetes mellitus, glc in [id number], continue lispro. #hypothyroidism, Continue home levothyroxine 125 g daily # hypertension, Continue home Lisinopril 10 mg twice a day # Chronic dementia, Described in [employer] as both vascular and degenerative, Cont memantine 5 mg twice a day, Donepezil 10 mg at bedtime # Coronary artery disease, History of ischemic heart disease with CABG 4 and reported RCA percutaneous intervention - Continue home clopidogrel 75 mg daily, imdur 30 mg daily -?statin # History of cerebrovascular accident in the left coronal radiata, Continue home clopidogrel 75 mg daily DVT prophylaxis: SCD GI prophylaxis: None indicated at this time dispo: likely1-2more days, home with HH, RN PT GI Prophylaxis: Not indicated VTE Prophylaxis: Sub-Q Enoxaparin, SCDs VTE Mechanical Devices: Intermittant Pneumatic CD Resuscitation Status: CPR: Attempt Resuscitation Sarbjit Reyes MD Nov 04, 2016 16:30
--- NOTE | 2016-11-04 18:53 | NUR ---
Anxiety/Ambulation Pt. this morning req. ativan to help with her anxiety and 0.5mg ativan PO was given. Pt. slept a couple hours this afternoon and states feeling more rested than the previous days. Pt. ambulating halls with family using FWW, steady gait observed. Family at bedside will continue to monitor.
[2016-11-04] MEDS: Amoxicillin-Clav 875-125 mg Tablet PO SCH (22:16)
[2016-11-05] VITALS (10 sets, daily range): BP systolic 120–143; BP diastolic 69–76; PULSE 70–82; RESP 16–18; O2SAT 92–98
--- NOTE | 2016-11-05 03:37 | NUR ---
ABX/Ativan Pt switched to PO abx with first dose this shift. Two daughters present at bedside stating that the previous abx was causing GI upset/nauseousness. Attempted to educate daughters on abx - they were adamant on IVP Zofran prior to PO abx dose. One daughter willing to have pt take without antiemetic to see if pt would indeed need anti-nausea. Other, who will be staying the night, refused. Pt given 4mg IVP Zofran prior to dosing. No issues with taking abx. Pt requesting .25mg PO Ativan at ~0140. Pt then stating wanting to try and sleep. Per family, has been sleeping during the day and sleep cycle is off. Pt has been calm and pleasant, no acute issues. Care continues.
[2016-11-05 05:42] LABS: Magnesium 1.8 mg/dL (1.6-2.6)
[2016-11-05] MEDS: Insulin LISPRO 300 Unit/3 mL Inj SUBQ SCH ×4 (08:35→20:49)
[2016-11-05] MEDS: MeTOProlol XL 50 mg ER24 Tablet PO SCH (08:36)
[2016-11-05] MEDS: Isosorbide Mononitrate 30 mg ER24 Tablet PO SCH (08:36)
[2016-11-05] MEDS: Amoxicillin-Clav 875-125 mg Tablet PO SCH ×2 (08:37→21:19)
--- NOTE | 2016-11-05 12:55 | PCM.DIMED ---
Discharge Instructions Date of Service Nov 05, 2016 Dates of Hospitalization Oct 31, 2016 at 22:46 Discharge Diagnosis Discharge Diagnosis Left lower lobe pneumonia, hyponatremia Diet Discharge Diet: No restrictions, Other (1500 mL fluid restriction per day) Activity Discharge Activity: No restrictions Patient Instructions Follow-up plan See primary care provider within the week, have home health follow blood work. Follow-up Provider: Lashaun Ortiz MD Follow-up with PCP in: 1 week (follow-up on activity, blood pressure, sodium) Sarbjit Reyes MD Nov 05, 2016 12:55
--- NOTE | 2016-11-05 12:58 | NUR ---
Social Work: Discharge D: EMR reviewed. Pt is on day 5 of hospitalization. Pt is medically stable to discharge today. [facility] has been notified of pt's discharge. N[facility] has met with pt and pt's daughter in room during this admission, agreeable to pt's discharge and beginning services. F2F has been provided. VLAD spoke with Sujey (pt's daughter) in pt's room to confirm pt has been accepted with [facility] and Sujey will transport pt home for discharge. Sujey confirms that she will provide transport home for pt. Pt and family agreeable to plan, though a little nervous for discharge. VLAD and Sujey provided reassurance to pt. All updated and agreeable to plan. A: Pt for whom [facility] RN PT 3x/week has been deemed medically necessary. P: Pt to discharge home via POV and open with [facility] for RN PT 3x/week. Pt to transport home with daughter Sujey via POV. All updated and agreeable to plan. PUMA Petersen Addendum: 11/05/16 at 1305 by KELLEY OSORIO SS PUMA was just notified by that pt is no longer ready for discharge as her NA+ is too high. Pt anticipated to discharge tomorrow. VLAD will continue to follow. PUMA Petersen
--- NOTE | 2016-11-05 13:22 | PCM.PNMED ---
Subjective Date of Service Nov 05, 2016 Subjective Patient expresses little anxiety about going home. She is happy to stay. Her breathing is all right she is ambulating in the griffith, no chest pain no dyspnea, no vomiting. She does have issues chronically with nausea especially with the antibiotics. Exam Vital Signs Vital Sign - Last Date Time Temp Pulse Resp B/P Pulse Ox O2 Delivery O2 Flow Rate FiO2 11/05/16 13:08 36.6 74 18 120/69 95 Room Air 11/03/16 10:08 2.00 Intake and Output 11/04/16 11/04/16 11/05/16 Cumulative From/Thru 15:00 23:00 07:00 10/31/16 19:57 - 11/05/16 06:20 Intake Total 800 ml 800 ml 8710 ml Output Total 300 ml 4250 ml Balance 800 ml 500 ml 4460 ml Intake Oral 800 ml 800 ml 5156 ml IV Total 3554 ml Output Urine Total 300 ml 4050 ml Stool Total 200 ml # Voids 4 3 9 # Bowel Movements 0 1 9 Exam Gen.- A+ O 2-3 no apparent distress. Thin elderly female Eyes- open conjunctiva clear, pupils equal nonicteric Mouth-lips normal ENT- ears normal, nose normal, hearing intact Neck- supple/trach midline CVS- RRR no murmur or gallop Lungs- CTA GI- NABS/NT soft Musc- moving 4 no obvious deformity Neuro- cranial nerves II through XII intact to gross examination, nonfocal Left foot droop, I observed her ambulating around the unit with a walker Skin- warm and dry, no rashes/lesions/wounds noted Psych- pleasant but anxious Lab and Diagnostics Result Diagram: 11/04/16 0510 11/05/16 0500 X-Rays, CTs and MRIs X-RAY CHEST, TWO VIEWS IMPRESSION: Left lower lobe pneumonia. Dictated by: Russ Haas M.D. on 10/31/2016 at 20:39 Assessment & Plan 85 year old female admitted 10/31 for fever, cough, generalized weakness onset of 2 days. 11/04 meeting patient for first time she is handling the hallway she has a left foot drop she is on room air. Most concerning his hyponatremia stopping furosemide, resuming her lorazepam as she has it at home and looking for discharge perhaps 11/05. Patient is on multiple medications that may aggravate hyponatremia. 11/05 worsening hyponatremia is preventing discharge at this time. Hopefully we can discharge tomorrow if sodium is closer to 130. # hyponatremia, 11/02-, 124 11/05, -Etiology unclear SIADH versus volume overload, checking urinary sodium and repeating basic metabolic at 1730 and in the #Anxiety/depression-patient slept some, no longer hallucinating 11/05 -d.c Wellbutrin ER 150 mg bid as per daughter, this makes her confused, psychotic, -cont citalopram 10 mg daily -Resumed lorazepam 11/04 #new onset diarrhea, nausea episode, developed 11/01-, -PCR and C. difficile negative 11/04 # Community acquired pneumonia, SIRS negative, lactic acid of 1.3, although PCT 2.48 on admission. -Blood/sputum C+S, strep urine antigen and legionella urine antigen negative, nasal MRSA swab negative -started Rocephin 10/31-11/04/azithro 10/31-11/01, Augmentin 11/04-11/07 - Incentive spirometry and a cappella device ordered -O2 supplement as needed # Type II diabetes mellitus, glc in , continue lispro. -Metformin 500 mg twice a day resume 11/04 continue to trend blood sugars less than 206/20 #hypothyroidism, Continue home levothyroxine 125 g daily # Chronic dementia, Described in [facility] as both vascular and degenerative, Cont memantine 5 mg twice a day, Donepezil 10 mg at bedtime # HTN/CAD s/p CABG+PTCA- - Continue home clopidogrel 75 mg daily, imdur 30 mg daily -Continue home Lisinopril 10 mg twice a day -?statin # Hx CVA left coronal radiata, Continue home clopidogrel 75 mg daily DVT prophylaxis: SCD GI prophylaxis: None indicated at this time dispo: [facility] and physical home health nursing and physical therapy GI Prophylaxis: Not indicated VTE Prophylaxis: Sub-Q Enoxaparin, SCDs VTE Mechanical Devices: Intermittant Pneumatic CD Resuscitation Status: CPR: Attempt Resuscitation Sarbjit Reyes MD Nov 05, 2016 13:22
--- NOTE | 2016-11-05 15:36 | NUR ---
Activity/Diet Pt up to the bedside chair for meals and walking the unit multiple times today. Tolerating activity well. Pt's appetite seems to be increasing, although needs encouragement to eat. Pt tolerating po zofran.
[2016-11-05] MEDS: Alum-Mag Hydrox-Simeth 30 mL Suspension PO PRN (20:46)
[2016-11-05] MEDS: LORazepam 0.5 mg Tablet PO PRN (21:19)
[2016-11-06 00:01] VITALS: BP 131/62; PULSE 70; RESP 18; O2SAT 96
--- NOTE | 2016-11-06 02:53 | NUR ---
Sleep/Abx At start of shift, pt stating being tired d/t multiple visitors throughout day; appearing tired. Mild anxiety off and on, daughter at bedside. Pt was agreeable to taking 0.5mg PO Ativan for bedtime. Pt daughter okay with pt taking abx dose without zofran on board. Pt tolerated dose without issue. Prior to abx dose was c/o GI upset - received Maalox. No acute issues thus far. Pt sleeping intermittently. Care continues.
[2016-11-06] MEDS: Alum-Mag Hydrox-Simeth 30 mL Suspension PO PRN ×2 (04:23→12:30)
[2016-11-06 05:33] VITALS: BP 139/66; PULSE 77; RESP 18; O2SAT 96
[2016-11-06 07:53] VITALS: PULSE 71; RESP 16; O2SAT 96
[2016-11-06] MEDS: Insulin LISPRO 300 Unit/3 mL Inj SUBQ SCH ×2 (08:00→12:17)
[2016-11-06 08:28] VITALS: BP 135/69; PULSE 76; RESP 18; O2SAT 97
[2016-11-06] MEDS: Isosorbide Mononitrate 30 mg ER24 Tablet PO SCH (08:30)
[2016-11-06] MEDS: MeTOProlol XL 50 mg ER24 Tablet PO SCH (08:30)
[2016-11-06] MEDS: Amoxicillin-Clav 875-125 mg Tablet PO SCH (08:30)
[2016-11-06 10:05] VITALS: PULSE 67
[2016-11-06] MEDS ORDERED: ALBU8.5H2 INHALATION (10:31)
[2016-11-06] MEDS ORDERED: ONDA4TAB12 PO (10:31)
[2016-11-06] MEDS ORDERED: METO-272 PO (10:31)
[2016-11-06] MEDS ORDERED: LORA-302 PO (10:31)
[2016-11-06] MEDS ORDERED: Lactobacillus Acidophilus PO (10:31)
[2016-11-06] MEDS ORDERED: LORA-303 PO (10:31)
[2016-11-06] MEDS ORDERED: AGM875T PO (10:31)
[2016-11-06] MEDS ORDERED: Acetaminophen PO (10:31)
--- NOTE | 2016-11-06 11:40 | NUR ---
Social Work: Discharge D: EMR reviewed. Pt is on day 6 of hospitalization. Pt is medically stable to discharge today. Pt was anticipated to discharge yesterday but discharge orders were cancelled due to pt's Na + levels. SW met with pt and her son at bedside regarding discharge. Pt is agreeable to discharge. [facility] has been notified of pt's discharge. F2F has been provided. Pt to discharge home with family to transport via POV, [facility] services. No additional discharge needs identified. A: Pt for whom HH RN PT 3x/week has been deemed medically necessary. P: Pt to discharge home with family to transport via POV and open with [facility] for RN PT 3x/week. No additional discharge needs identified. Matilda Massey MSW
[2016-11-06 12:11] VITALS: BP 127/62; PULSE 68; RESP 18; O2SAT 97
--- NOTE | 2016-11-06 13:15 | NUR ---
discharged home with family, went over discharge instruction with Daughter and pt. daughter was able to repeat back discharge instructions/meds changes. Pt is eating/drinking, explained to daughter fluid restriction of 1500cc/day for time being. Pt will have repeat chem screen with PCP in 1 week. Pt is satting well on RA, no dyspnea
--- NOTE | 2016-11-06 14:58 | PCM.DC.MED ---
Discharge Summary Date of Service Nov 06, 2016 Dates of Hospitalization Date of Hospital Admission Oct 31, 2016 at 22:46 Date of Discharge: Nov 06, 2016 Providers: Admitting Physician: Efrain Kc MD Primary Care Physician: Lashaun Ortiz MD Attending Physician: Efrain Kc MD Diagnosis at Time of Discharge Diagnosis at Time of Discharge Left lower lobe pneumonia, hyponatremia Consultations None Procedures XRay, CTs & MRIs X-RAY CHEST, TWO VIEWS IMPRESSION: Left lower lobe pneumonia. Dictated by: Russ Haas M.D. on 10/31/2016 at 20:39 Brief History 85 year old female who presents to the ED via EMS from due to fever onset 2 days ago. The patient states that she is felt poorly for the last 2 days describing fever and chills, cough, body aches and generalized weakness. The patient's daughter who is in the room states that in the emergency department the patient felt that she was having muscle spasms in her back. The daughter states that her mother has not been eating or drinking much the last several days. The patient's reportedly also has very similar symptoms. The patient denies chest pain, abdominal pain, shortness of breath, dysuria, unusual bruising or bleeding, or increased swelling in her hands or feet. Per the ED report "The patient's granddaughter went to visit her at her care center and the pt had been in her bed for 2 days so she brought her to the , suspecting a UTI. At the , the patient's pulse ox was low and she had a fever. She had an episode of diarrhea in her pants last night. She is not able to walk by herself which is abnormal. She patient is normally very active and walks 2 miles a day. This level of decreased activity is very abnormal for her. The patient's has been ill with a recent cold including productive cough and sore throat. She denies dysuria and wears a pad in case of incontinence." Hospital Course 85 year old female admitted 10/31 for fever, cough, generalized weakness onset of 2 days. 11/04 meeting patient for first time she is handling the hallway she has a left foot drop she is on room air. Most concerning his hyponatremia stopping furosemide, resuming her lorazepam as she has it at home and looking for discharge perhaps 11/05. Patient is on multiple medications that may aggravate hyponatremia. 11/05 worsening hyponatremia is preventing discharge at this time. Hopefully we can discharge tomorrow if sodium is closer to 130. Patient was placed on fluid restriction 1500 mL 11/06 sodium up to 129 patient ambulating still little bit anxious about going home but family ready to take her. We will need to follow her sodium and 11/11 I think. # hyponatremia, 11/02-, 124 11/05, -Etiology unclear SIADH versus volume overload, checking urinary sodium and repeating basic metabolic at 1730 and in the -Urine sodium never obtained however on fluid restriction name improved presumptive diagnosis SIADH versus volume overload will require follow-up. #Anxiety/depression-patient slept some, no longer hallucinating 11/05 -d.c Wellbutrin ER 150 mg bid as per daughter, this makes her confused, psychotic, -cont citalopram 10 mg daily -Resumed lorazepam 11/04 #new onset diarrhea, nausea episode, developed 11/01-, -PCR and C. difficile negative 11/04 # Community acquired pneumonia, SIRS negative, lactic acid of 1.3, although PCT 2.48 on admission. -Blood/sputum C+S, strep urine antigen and legionella urine antigen negative, nasal MRSA swab negative -started Rocephin 10/31-11/04/azithro 10/31-11/01, Augmentin 11/04-11/07 - Incentive spirometry and a cappella device ordered -O2 supplement as needed # Type II diabetes mellitus, glc in , continue lispro. -Metformin 500 mg twice a day resume 11/04 continue to trend blood sugars less than 206/20 #hypothyroidism, Continue home levothyroxine 125 g daily, -I cannot find on discharge the TSH that I believe was elevated and free T4 that was low they cause me to adjust her levothyroxine from 112-125 g, recommend repeat TSH and free T4 on discharge may need her prior meds. # Chronic dementia, Described in [facility] as both vascular and degenerative, Cont memantine 5 mg twice a day, Donepezil 10 mg at bedtime # HTN/CAD s/p CABG+PTCA- - Continue home clopidogrel 75 mg daily, imdur 30 mg daily -Continue home Lisinopril 10 mg twice a day -?statin # Hx CVA left coronal radiata, Continue home clopidogrel 75 mg daily DVT prophylaxis: SCD GI prophylaxis: None indicated at this time dispo: [facility] and physical home health nursing and physical therapy Exam Vital Signs (Last) Date Time Temp Pulse Resp B/P Pulse Ox O2 Delivery O2 Flow Rate FiO2 11/06/16 12:11 36.8 68 18 127/62 97 Room Air 11/03/16 10:08 2.00 Exam Gen.- A+ O 2-3 no apparent distress. Thin elderly female Eyes- open conjunctiva clear, pupils equal nonicteric Mouth-lips normal ENT- ears normal, nose normal, hearing intact Neck- supple/trach midline CVS-normal rate Lungs-normal rate no accessory muscle usage normal oxygen saturation on room air GI-flat Musc- moving 4 no obvious deformity Neuro- cranial nerves II through XII intact to gross examination, nonfocal Left foot droop, I observed her ambulating around the unit with a walker Skin- warm and dry, no rashes/lesions/wounds noted Psych- pleasant but anxious Test 10/31/16 20:00 10/31/16 20:50 10/31/16 21:23 10/31/16 21:27 Hemoglobin A1c 6.3% (4.8-5.6) Troponin T < 0.010ug/L (0.0-0.011) Pro-B-Type Natriuretic Peptide 8081pg/mL (0-738) Triglycerides Level 108mg/dL (0-149) Cholesterol Level 170mg/dL (100-199) LDL Cholesterol, Calculated 97.400mg/dL (0-99) VLDL Cholesterol 21.600mg/dL HDL Cholesterol 51mg/dL (>39) Cholesterol/HDL Ratio 3.33 (0.0-4.4) Lactic Acid Level 1.3mmol/L (0.4-2.0) Urine Legionella pneumophilia Ag Negative (Negative) Urine Color Yellow (YELLOW) Urine Appearance Clear (CLEAR,HAZY) Urine pH 5.5 (5.0-8.0) Urine Specific [place] 1.012 (1.003-1.035) Urine Protein Negativemg/dL (NEG,TRACE) Urine Glucose (UA) Negativemg/dL (NEGATIVE) Urine Ketones Negativemg/dL (NEGATIVE) Urine Occult Blood Negative (NEGATIVE) Urine Nitrite Negative (NEGATIVE) Urine Bilirubin Negative (NEGATIVE) Urine Urobilinogen Normalmg/dL (NORMAL) Urine Leukocyte Esterase Negative (NEGATIVE) Urine RBC 0-2/hpf (0-2) Urine WBC 0-5/hpf (0-5) Urine Epithelial Cells Few/hpf (NONE-MOD) Urine Crystals None seen (NONE SEEN) Urine Bacteria Few/hpf (NONE-FEW) Urine Hyaline Casts None/lpf (NONE) Urine Granular Casts None seen (NONE SEEN) Urine Waxy Casts None seen (NONE SEEN) Urine Red Blood Cell Casts None seen (NONE SEEN) Urine White Blood Cell Casts None seen (NONE SEEN) Urine Mucus Present (None Seen) Urine Trichomonas None seen (NONE SEEN) Urine Yeast None (NONE SEEN) Urinalysis Comment Renal epi seen Urine Culture Reflexed Not indicated Test 11/04/16 05:10 11/05/16 05:00 11/06/16 05:00 White Blood Count 7.7th/mm3 (3.8-10.1) Red Blood Count 3.46mil/mm3 (3.90-5.20) Hemoglobin 10.3g/dL (12.0-15.6) Hematocrit 30.6% (35.0-46.0) Mean Corpuscular Volume 88.4fL (81-100) Mean Corpuscular Hemoglobin 29.8pg (27.0-35.0) Mean Corpuscular Hemoglobin Concent 33.7% (32.0-37.0) Red Cell Distribution Width 12.9% (12.3-15.4) Platelet Count 134bil/L (150-400) Neutrophils (%) (Auto) 74.9% (40-74) Lymphocytes (%) (Auto) 12.4% (14-46) Monocytes (%) (Auto) 11.6% (4-12) Eosinophils (%) (Auto) 0.4% (0-5) Basophils (%) (Auto) 0.1% (0-3) Phosphorus Level 3.6mg/dL (2.5-4.9) Total Bilirubin 0.3mg/dL (0.0-1.2) Aspartate Amino Transf (AST/SGOT) 18U/L (0-50) Alanine Aminotransferase (ALT/SGPT) 16U/L (0-32) Alkaline Phosphatase 84U/L (25-165) Total Protein 5.1g/dL (6.4-8.4) Albumin 3.1g/dL (3.4-5.0) Procalcitonin 0.45ng/mL (0.00-0.08) Magnesium Level 1.8mg/dL (1.6-2.6) Sodium Level 129mEq/L (134-144) Potassium Level 4.7mEq/L (3.5-5.2) Chloride Level 93mEq/L (97-108) Carbon Dioxide Level 25mmol/L (18-29) Blood Urea Nitrogen 18mg/dL (8-27) Creatinine 0.88mg/dL (0.57-1.00) Estimat Glomerular Filtration Rate 87mL/min (>59) Glucose Level 194mg/dL (60-99) Calcium Level 8.5mg/dL (8.5-10.1) Microbiology Results Sputum, blood, Legionella antigen all negative from admission, stool PCR neg Discharge Medications Discharge Medications ([Lactobacillus Acidophilus]) 1 TABLET TABLET 2 TABLET PO PCHS Prescribed by: ZAKIYA PHELPS MD Amoxicillin/Clav K 875-125 mg (Amoxicillin/Clav K 875-125 mg) 875 Mg Tab 1 TAB PO BID Prescribed by: ZAKIYA PHELPS MD Citalopram (Citalopram) 10 Mg Tablet 10 MG PO DAILY (Reported) Clopidogrel Bisulfate (Plavix) 75 Mg Tablet 75 MG PO Every Other Day (Reported) Isosorbide MN ER (Isosorbide MN ER) 30 Mg Tab.er.24h 30 MG PO DAILY (Reported) Levothyroxine (Levothyroxine) 125 Mcg Tablet 125 MCG PO DAILY (Reported) Lisinopril (Lisinopril) 10 Mg Tablet 10 MG PO BID (Reported) Memantine (Namenda) 10 Mg Tablet 5 MG PO BID (Reported) Metformin (Metformin) 500 Mg Tablet 1,000 MG PO MORNING (Reported) Metformin (Metformin) 500 Mg Tablet 500 MG PO Evening (Reported) Metoprolol Succinate ER (Metoprolol Succinate ER) 50 Mg Tab.er.24h 50 MG PO DAILY Prescribed by: ZAKIYA PHELPS MD As needed ([Acetaminophen]) 325 MG TABLET 650 MG PO Q4H PRN PRN For Pain Prescribed by: ZAKIYA PHELPS MD Albuterol HFA (Proair HFA) 8.5 Gm Hfa.aer.ad 2 PUFFS INHALATION Q4H PRN PRN For Shortness of Breath Prescribed by: ZAKIYA PHELPS MD Lorazepam (Ativan) 0.5 Mg Tablet 0.5 MG PO 0830,1330,1730 PRN PRN For Anxiety Prescribed by: ZAKIYA PHELPS MD Lorazepam (Ativan) 1 Mg Tablet 1 MG PO HS PRN PRN insomnia Prescribed by: ZAKIYA PHELPS MD Ondansetron ODT (Ondansetron ODT) 4 Mg Tab.rapdis 4 MG PO 0730,1430,1930 PRN PRN For Nausea Prescribed by: ZAKIYA PHELPS MD Followup Plan Disposition: To home with home health Follow-up plan See primary care provider within the week, have home health follow blood work. Discharge Diet: No restrictions, Other (1500 mL fluid restriction per day) Discharge Activity: No restrictions Follow-up Provider: Lashaun Ortiz MD Follow-up with PCP in: 1 week (follow-up on activity, blood pressure, sodium) Time spent Greater than 30 minutes Attending Statement Patient finishing a short course of antibiotics with probiotics she will probably about 10 days of treatment and she is on room air for her pneumonia. She may need a repeat CXR to follow up on the consolidation in left lower lobe. She should have a basic metabolic panel 11/08 and 11/11 to verify that hyponatremia is resolving. She probably needs repeat TSH and free T4 as I made an adjustment to her Levothyroxine dose and at the time of discharge after she has gone and I am dictating this I cannot find the PFTs that prompted the change. If these have not been done recently as I can tell it has only been since 2013 that should be repeated. copies to: Lashaun Ortiz MD,Zakiya Redd MD Nov 06, 2016 14:58
== END 2016-11-06 13:45 | disposition home health service (06) | DRG 194 ==
LOC: SED 19:39 → EDUNIT# 19:39 → EDBD 19:39 → OSC 22:46
PROVIDERS: ADMIT Hospitalist; ATTEND Hospitalist
DX: J18.9 Pneumonia, unspecified organism (principal); E87.1 Hypo-osmolality and hyponatremia; E86.0 Dehydration; D69.6 Thrombocytopenia, unspecified; E11.9 Type 2 diabetes mellitus without complications; E03.9 Hypothyroidism, unspecified; F03.90 Unspecified dementia, unspecified severity, without behavioral disturbance, psychotic disturbance, mood disturbance, and anxiety; I10 Essential (primary) hypertension; I25.10 Atherosclerotic heart disease of native coronary artery without angina pectoris; Z95.1 Presence of aortocoronary bypass graft; Z86.73 Personal history of transient ischemic attack (TIA), and cerebral infarction without residual deficits; Z79.84 Long term (current) use of oral hypoglycemic drugs; F41.8 Other specified anxiety disorders

== ENCOUNTER 2016-12-09 16:16 | Emergency (ER) | payer MEDICARE ==
[~2016-12-09] VITALS: Ht 167.6 cm; Wt 59.0 kg
[~2016-12-09 16:16] MED LIST changes: -ACET-2605 PO; +AGM875T PO; +ALBU8.5H2 INHALATION; +Acetaminophen PO; -BUPR150T12 PO; -CHOL100045 PO; -CIPR-231 PO; +CITA10TA9 PO; -DONE10TA42 PO; -FUR20 PO; -LEVO112T4 PO; +LEVO125T6 PO; -LISI-571 PO; +LISI10TA PO; +LORA-302 PO; +LORA-303 PO; -LORA1TAB PO; +Lactobacillus Acidophilus PO; -MAGN400C PO; +METO-272 PO; -METO50TA3 PO; +ONDA4TAB12 PO
[2016-12-09 16:28] VITALS: BP 146/104; PULSE 156; RESP 16; O2SAT 95
--- NOTE | 2016-12-09 16:33 | ED.REPORT ---
HPI-General Illness Date of Service Dec 09, 2016 ED Provider: Lauren Hopkins MD Patient is a 85 year old female with a history of dementia, stroke, CAD, [place], CABG and stents x2, hypertension, CHF and diabetes with neuropathy who presents to the ED via EMS due to heart palpitations. Associated symptoms include shortness of breath and feeling hot. Per the patient's daughter, the patient became very anxious during this time and thinks she was having a panic attack. The patient's daughter is also concerned that the Memantine is causing the patient more agitation. Upon EMS arrival, the patient's heart rate was 165. The patient denies feeling like this before. She reports that she did not take any of her morning medications this morning because she had an early doctor's appointment. Nursing Notes Stated Complaint: RAPID HEART RATE Chief Complaint: General Complaint Nursing Notes Reviewed: Yes Allergies: Coded Allergies: dipyridamole (Verified Allergy, Severe, 07/14/16) Sulfa (Sulfonamide Antibiotics) (Unverified Allergy, Unknown, 07/14/16) Uncoded Allergies: VASODILATING AGENTS (Allergy, Unknown, 05/02/04) Scheduled ([Lactobacillus Acidophilus]) 1 TABLET TABLET 2 TABLET PO PCHS Amoxicillin/Clav K 875-125 mg (Amoxicillin/Clav K 875-125 mg) 875 Mg Tab 1 TAB PO BID Citalopram (Citalopram) 10 Mg Tablet 10 MG PO DAILY Clopidogrel Bisulfate (Plavix) 75 Mg Tablet 75 MG PO Every Other Day Isosorbide MN ER (Isosorbide MN ER) 30 Mg Tab.er.24h 30 MG PO DAILY Levothyroxine (Levothyroxine) 125 Mcg Tablet 125 MCG PO DAILY Lisinopril (Lisinopril) 10 Mg Tablet 10 MG PO BID Memantine (Namenda) 10 Mg Tablet 5 MG PO BID Metformin (Metformin) 500 Mg Tablet 1,000 MG PO MORNING Metformin (Metformin) 500 Mg Tablet 500 MG PO Evening Metoprolol Succinate ER (Metoprolol Succinate ER) 50 Mg Tab.er.24h 50 MG PO DAILY Scheduled PRN ([Acetaminophen]) 325 MG TABLET 650 MG PO Q4H PRN PRN For Pain Albuterol HFA (Proair HFA) 8.5 Gm Hfa.aer.ad 2 PUFFS INHALATION Q4H PRN PRN For Shortness of Breath Lorazepam (Ativan) 0.5 Mg Tablet 0.5 MG PO 0830,1330,1730 PRN PRN For Anxiety Lorazepam (Ativan) 1 Mg Tablet 1 MG PO HS PRN PRN insomnia Ondansetron ODT (Ondansetron ODT) 4 Mg Tab.rapdis 4 MG PO 0730,1430,1930 PRN PRN For Nausea General Time Seen by MD: 16:27 Chief Complaint Other (atrial flutter) Hx Obtained From: Patient, Daughter Arrived By: Ambulance Sudden in Onset?: Yes Onset Occurred: 1 - 4 hours ago Severity: Current: No pain currently Recent Healthcare: Recent doctor visit, Recent hospitalization Past Medical History Past Medical History Coronary artery disease, status post cardiac bypass in 1994 and stent placement in 2005. multiple myeloma chronic anemia thrombocytopenia hyperplastic colon polyps hypothyroidism anxiety chronic kidney disease Reports: Diabetes mellitus, Hyperlipidemia, Hypertension Reports: Thyroid disease Past Surgical History back surgery breast reduction surgery cardiac stents Reports: , CABG, Hysterectomy Smoking History Never Smoker Social History Alcohol Use: Denies alcohol use Drug Use: Denies drug use Other Social History: Good social support, , Local resident Ambulatory Status Independent Review of Systems Full Review of Systems Constitutional: Denies: Chills, Fever Respiratory: Reports: Shortness of breath, Denies: Non-productive cough Cardiovascular: Reports: Palpitations Skin: Denies Itching, Denies Rash Complete sys rev & neg: except as marked. Physical Exam Vital Signs Vital Signs Date Time Temp Pulse Resp B/P Pulse Ox O2 Delivery O2 Flow Rate FiO2 12/09/16 17:54 36.8 80 19 158/66 95 Room Air 12/09/16 16:28 36 156 16 146/104 95 Room Air Initial VS: Reviewed General/Constitutional: Awake, Alert, No acute distress Alertness: Positive: Confused well profused Head / Eyes: Atraumatic, Normocephalic, PERRL, EOMI Neck: Atraumatic, Supple Respiratory / Chest: Atraumatic, Breath sounds NL, Breath sounds = bilat, No respiratory distress Cardiovascular: Heart sounds NL, No murmurs occasional early beats Abdomen: Atraumatic, Soft, Non-tender Upper Extremities Upper Extremity / MS: Atraumatic, Full range of motion Lower Extremity / Pelvis / MS: Atraumatic, No edema Skin: Atraumatic, Color NL, No rash, Warm, Dry Neurologic: Speech NL, No motor deficits Psychiatric: Affect NL, Mood NL Interpretation & Diagnostics Lab Results Interpretation Result Diagram: 12/09/16 1632 12/09/16 1632 Test 12/09/16 16:32 White Blood Count 5.8th/mm3 (3.8-10.1) Red Blood Count 4.75mil/mm3 (3.90-5.20) Hemoglobin 13.9g/dL (12.0-15.6) Hematocrit 41.7% (35.0-46.0) Mean Corpuscular Volume 87.8fL (81-100) Mean Corpuscular Hemoglobin 29.3pg (27.0-35.0) Mean Corpuscular Hemoglobin Concent 33.3% (32.0-37.0) Red Cell Distribution Width 14.1% (12.3-15.4) Platelet Count 141bil/L (150-400) Neutrophils (%) (Auto) 63.8% (40-74) Lymphocytes (%) (Auto) 27.9% (14-46) Monocytes (%) (Auto) 6.6% (4-12) Eosinophils (%) (Auto) 1.0% (0-5) Basophils (%) (Auto) 0.5% (0-3) Sodium Level 134mEq/L (134-144) Potassium Level 4.0mEq/L (3.5-5.2) Chloride Level 94mEq/L (97-108) Carbon Dioxide Level 22mmol/L (18-29) Blood Urea Nitrogen 20mg/dL (8-27) Creatinine 0.80mg/dL (0.57-1.00) Estimat Glomerular Filtration Rate 97mL/min (>59) Glucose Level 176mg/dL (60-99) Calcium Level 9.7mg/dL (8.5-10.1) Magnesium Level 1.6mg/dL (1.6-2.6) Total Bilirubin 0.4mg/dL (0.0-1.2) Aspartate Amino Transf (AST/SGOT) 19U/L (0-50) Alanine Aminotransferase (ALT/SGPT) 10U/L (0-32) Alkaline Phosphatase 66U/L (25-165) Troponin T < 0.010ug/L (0.0-0.011) Total Protein 7.3g/dL (6.4-8.4) Albumin 4.2g/dL (3.4-5.0) ECG Interpretation ECG Interpretation: rate 143 2:1 atrial flutter Time: 16:31 Interpreted by: ED physician Rhythm Strip Interpretation : Rhythm Strip Interpretation: converted from 2:1 atrial flutter to sinus rhythm with PACs and PVCs spontaneously at 1658 Time: 16:58 Rhythm Strip Interpretation: Interpreted by me X-Ray Chest Interpretation Chest Xray Interpretation: IMPRESSION: Prior CABG, no source of chest pain is found. Dictated by: Vijay Quinn M.D. on 12/09/2016 at 16:51 Approved by: Vijay Quinn M.D. on 12/09/2016 at 16:52 View: Portable, 1 view Interpretation / Wet Read by: Interpret - Radiologist Re-Eval/Medical Decision Time of Eval: 17:14 Re-Evaluation/Progress Note: Discussed plan for discharge pending lab results. Patient understands and agrees to the plan. All questions were addressed. Time of Eval: 18:00 Re-Evaluation/Progress Note: Discussed lab results and plan for discharge. Patient understands and agrees to the plan. All questions were addressed. Time of Eval: 18:15 Re-Evaluation/Progress Note: Now back into her atrial flutter. Still waiting for the metoprolol. Quite anxious about her who now is having chest pain and checking into the emergency department. Will try to expedite the oral metoprolol as well as half a milligram of Ativan and continue reevaluating. Consultation : Consulted With: On-call physician (pharmacy) Call Returned at: 17:19 Note: Consult with [facility] who will take the Memantine for the patient's next round of medications. Counseled Regarding: Diagnosis, Lab results, Need for follow-up, When/why to return to ED Discharge & Departure Primary Impression: Atrial flutter Atrial flutter type: unspecified Qualified Code: I48.92 - Unspecified atrial flutter Disposition: Home Discharge Condition All VS Reviewed: Yes Condition: Stable Patient Instructions: Atrial Flutter (ED) Additional Instructions: You appear to have been in atrial flutter, which is why you felt like your heart was racing. Here in the emergency department, you fixed yourself and your heart rate is back to normal. You may notice it fluctuating a bit until the metoprolol you got in the ER is taking effect. Continue to take your Metoprolol in the morning. We are taking Memantine out of your pre pack. I have talked with [facility]. Follow up with Dr. Ortiz in a week or two to further discuss your medications. Return to the emergency department if you develop any new or concerning symptoms. Referrals: Lashaun Ortiz MD (PCP) Mary Lou Attestation Portions of this note were transcribed by Megan Naqvi. I, Dr. Hopkins personally performed the history, physical exam and medical decision-making; I reviewed and confirmed the accuracy of the information in the transcribed note. Signed by: Mary Lou Beavers, 12/09/16 and 1706 copies to: Lashaun Ortiz MD, Shawna L MD Dec 09, 2016 16:33 Jovita Naqvi Dec 09, 2016 16:57
[2016-12-09 16:40] LABS: BASOPHILS % (AUTO) 0.5 % (0-3); MONOCYTES % (AUTO) 6.6 % (4-12); Mean Corpuscular Hemoglobin 29.3 pg (27.0-35.0); Mean Corpuscular Volume 87.8 fL (81-100); NEUTROPHILS % (AUTO) 63.8 % (40-74); Platelet Count 141 bil/L (150-400)
--- NOTE | 2016-12-09 16:54 | DRSVH ---
PROCEDURE: X-RAY CHEST ONE VIEW, PORTABLE ([id number]) INDICATIONS: cp TECHNIQUE: One view of the chest was acquired. COMPARISON: [facility], CR, XR CHEST 2VW, 12/05/2016, 10:17. , CR , XR CHEST 1VW (PORTABLE), 11/03/2016, 10:23. FINDINGS: Surgical changes and devices: Sternotomy wires, prior CABG, no definite additional surgical procedure s.. Lungs and pleura: No pleural effusions or pneumothorax. Lungs are clear. Mediastinum: Mediastinal contours appear normal. Heart size is normal. Bones and chest wall: No suspicious bony lesions. Overlying soft tissues appear unremarkable. IMPRESSION: Prior CABG, no source of chest pain is found. Dictated by: Vijay Quinn M.D. on 12/09/2016 at 16:51 Approved by: Vijay Quinn M.D. on 12/09/2016 at 16:52
[2016-12-09] MEDS ORDERED: Adenosine 3 mg/mL 2 mL Inj IVPUSH ONE ×2 (16:55)
[2016-12-09 17:14] LABS: Magnesium 1.6 mg/dL (1.6-2.6)
[2016-12-09 17:19] LABS: TROPONIN T < 0.010 ug/L (0.0-0.011)
[2016-12-09] MEDS ORDERED: MeTOProlol XL 50 mg ER24 Tablet PO ONE (17:30)
[2016-12-09 17:54] VITALS: BP 158/66; PULSE 80; RESP 19; O2SAT 95
[2016-12-09] MEDS ORDERED: LORazepam 0.5 mg Tablet PO ONE (18:15)
[2016-12-09 19:35] VITALS: BP 137/67; PULSE 76; RESP 17; O2SAT 98
== END 2016-12-09 19:36 | disposition home or self-care (01) ==
LOC: SED 16:16 → EDBD 16:16 → EDUNIT# 16:16 → SED 19:36
DX: I48.92 Unspecified atrial flutter (principal); I25.10 Atherosclerotic heart disease of native coronary artery without angina pectoris; I25.2 Old myocardial infarction; E78.5 Hyperlipidemia, unspecified; I50.9 Heart failure, unspecified; E11.40 Type 2 diabetes mellitus with diabetic neuropathy, unspecified; I12.9 Hypertensive chronic kidney disease with stage 1 through stage 4 chronic kidney disease, or unspecified chronic kidney disease; N18.9 Chronic kidney disease, unspecified; E03.9 Hypothyroidism, unspecified; Z85.79 Personal history of other malignant neoplasms of lymphoid, hematopoietic and related tissues; Z95.1 Presence of aortocoronary bypass graft; Z90.710 Acquired absence of both cervix and uterus; Z79.51 Long term (current) use of inhaled steroids; Z79.84 Long term (current) use of oral hypoglycemic drugs; Z88.2 Allergy status to sulfonamides; Z88.8 Allergy status to other drugs, medicaments and biological substances
CPT/HCPCS: 11721; 36415; 71010; 80053; 83735; 84484; 85025; 93005; 99285; G0463

== ENCOUNTER 2016-12-21 18:32 | Emergency (ER) | payer MEDICARE ==
[~2016-12-21] VITALS: Ht 165.1 cm; Wt 59.1 kg
[2016-12-21 18:37] VITALS: BP 177/70; PULSE 65; RESP 20; O2SAT 100
--- NOTE | 2016-12-21 19:20 | ED.REPORT ---
HPI-General Illness Date of Service Dec 21, 2016 ED Provider: Akash Gil MD An 86 year old female with a history of hypertension, diabetes, hyperlipidemia, hysterectomy, CAD and bypass surgery presents to the ED complaining of abdominal pain. Per family, the pt has been experiencing abdominal pain all day and began screaming in pain this evening. Her last normal bowel movement was two days ago and she passed only a small amount of hard stool today. She also admits to nausea and vomiting but denies fever or dysuria. Nursing Notes Stated Complaint: ALL OVER BODY PAIN,NAUSEA Chief Complaint: Female Abdominal Pain Nursing Notes Reviewed: Yes Allergies: Coded Allergies: dipyridamole (Verified Allergy, Severe, 12/21/16) Sulfa (Sulfonamide Antibiotics) (Unverified Allergy, Unknown, 12/21/16) Uncoded Allergies: VASODILATING AGENTS (Allergy, Unknown, 05/02/04) Scheduled ([Lactobacillus Acidophilus]) 1 TABLET TABLET 2 TABLET PO PCHS Amoxicillin/Clav K 875-125 mg (Amoxicillin/Clav K 875-125 mg) 875 Mg Tab 1 TAB PO BID Citalopram (Citalopram) 10 Mg Tablet 10 MG PO DAILY Clopidogrel Bisulfate (Plavix) 75 Mg Tablet 75 MG PO Every Other Day Isosorbide MN ER (Isosorbide MN ER) 30 Mg Tab.er.24h 30 MG PO DAILY Levothyroxine (Levothyroxine) 125 Mcg Tablet 125 MCG PO DAILY Lisinopril (Lisinopril) 10 Mg Tablet 10 MG PO BID Memantine (Namenda) 10 Mg Tablet 5 MG PO BID Metformin (Metformin) 500 Mg Tablet 1,000 MG PO MORNING Metformin (Metformin) 500 Mg Tablet 500 MG PO Evening Metoprolol Succinate ER (Metoprolol Succinate ER) 50 Mg Tab.er.24h 50 MG PO DAILY Sodium,Potassium,&Mag Sulfates (Suprep Bowel Prep Kit) 354 Ml Soln.recon 354 ML PO ONCE Scheduled PRN ([Acetaminophen]) 325 MG TABLET 650 MG PO Q4H PRN PRN For Pain Albuterol HFA (Proair HFA) 8.5 Gm Hfa.aer.ad 2 PUFFS INHALATION Q4H PRN PRN For Shortness of Breath Lorazepam (Ativan) 0.5 Mg Tablet 0.5 MG PO 0830,1330,1730 PRN PRN For Anxiety Lorazepam (Ativan) 1 Mg Tablet 1 MG PO HS PRN PRN insomnia Ondansetron ODT (Ondansetron ODT) 4 Mg Tab.rapdis 4 MG PO 0730,1430,1930 PRN PRN For Nausea General Time Seen by MD: 19:16 Chief Complaint Abdominal pain Hx Obtained From: Patient, Other family... Arrived By: Walk-in Sudden in Onset?: No Symptom Duration: Since onset Recent Healthcare: Recent doctor visit, Recent hospitalization Similar Sx Previous: No Past Medical History Past Medical History Coronary artery disease, status post cardiac bypass in 1994 and stent placement in 2005. multiple myeloma chronic anemia thrombocytopenia hyperplastic colon polyps hypothyroidism anxiety chronic kidney disease Reports: Diabetes mellitus, Hyperlipidemia, Hypertension Reports: Thyroid disease Past Surgical History back surgery breast reduction surgery cardiac stents bypass Reports: , CABG, Hysterectomy Smoking History Never Smoker Social History Alcohol Use: Denies alcohol use Drug Use: Denies drug use Other Social History: Good social support, , Local resident Ambulatory Status Independent Review of Systems Full Review of Systems Constitutional: Denies: Fever Respiratory: Denies: Non-productive cough, Shortness of breath GI: Reports: Abdominal pain, Constipation, Nausea, Vomiting Female: Denies: Dysuria Musculoskeletal: Denies: Back pain, Neck pain Skin: Denies Rash Complete sys rev & neg: except as marked. Physical Exam Vital Signs Vital Signs Date Time Temp Pulse Resp B/P Pulse Ox O2 Delivery O2 Flow Rate FiO2 12/21/16 22:32 109 20 129/72 98 Room Air 12/21/16 21:43 71 18 137/105 96 12/21/16 18:37 36.4 65 20 177/70 100 Room Air Initial VS: Reviewed General/Constitutional: Awake, Alert Head / Eyes: Atraumatic, Normocephalic, PERRL, EOMI ENT: Atraumatic, Airway patent, Mucous membranes moist Neck: Atraumatic, Supple, Full range of motion Respiratory / Chest: Atraumatic, Breath sounds NL, Breath sounds = bilat, No respiratory distress Cardiovascular: Heart rate NL, Regular rhythm, Heart sounds NL Abdomen: Atraumatic, Soft midline scar from mid abdomen to pubic symphysis abdominal tenderness L>R with guarding Back: Atraumatic, Full range of motion Upper Extremities Upper Extremity / MS: Atraumatic, Full range of motion Lower Extremity / Pelvis / MS: Atraumatic, Full range of motion Skin: Atraumatic, Color NL, No rash, Warm, Dry Rectum / Perineum: No gross blood small external hemorrhoid rectum is empty, no stool on glove Neurologic: Oriented X3, Speech NL, No motor deficits, No sensory deficits Psychiatric: Affect NL, Mood NL Interpretation & Diagnostics Lab Results Interpretation Result Diagram: 12/21/16 1725 12/21/16 1725 Test 12/21/16 17:25 12/21/16 19:39 12/21/16 21:45 White Blood Count 6.9th/mm3 (3.8-10.1) Red Blood Count 4.00mil/mm3 (3.90-5.20) Hemoglobin 11.6g/dL (12.0-15.6) Hematocrit 35.2% (35.0-46.0) Mean Corpuscular Volume 88.0fL (81-100) Mean Corpuscular Hemoglobin 29.0pg (27.0-35.0) Mean Corpuscular Hemoglobin Concent 33.0% (32.0-37.0) Red Cell Distribution Width 13.7% (12.3-15.4) Platelet Count 102bil/L (150-400) Neutrophils (%) (Auto) 71.5% (40-74) Lymphocytes (%) (Auto) 19.6% (14-46) Monocytes (%) (Auto) 6.8% (4-12) Eosinophils (%) (Auto) 1.7% (0-5) Basophils (%) (Auto) 0.3% (0-3) Sodium Level 133mEq/L (134-144) Potassium Level 4.3mEq/L (3.5-5.2) Chloride Level 96mEq/L (97-108) Carbon Dioxide Level 21mmol/L (18-29) Blood Urea Nitrogen 19mg/dL (8-27) Creatinine 0.81mg/dL (0.57-1.00) Estimat Glomerular Filtration Rate 96mL/min (>59) Glucose Level 163mg/dL (60-99) Calcium Level 8.9mg/dL (8.5-10.1) Magnesium Level 1.6mg/dL (1.6-2.6) Total Bilirubin 0.6mg/dL (0.0-1.2) Aspartate Amino Transf (AST/SGOT) 16U/L (0-50) Alanine Aminotransferase (ALT/SGPT) 9U/L (0-32) Alkaline Phosphatase 44U/L (25-165) Total Protein 6.2g/dL (6.4-8.4) Albumin 3.9g/dL (3.4-5.0) Lipase 58U/L (13-60) Hold [place] Top Tube Received (Received) Urine Color Yellow (YELLOW) Urine Appearance Clear (CLEAR,HAZY) Urine pH 5.0 (5.0-8.0) Urine Specific [place] 1.010 (1.003-1.035) Urine Protein Negativemg/dL (NEG,TRACE) Urine Glucose (UA) Negativemg/dL (NEGATIVE) Urine Ketones Negativemg/dL (NEGATIVE) Urine Occult Blood Trace (NEGATIVE) Urine Nitrite Negative (NEGATIVE) Urine Bilirubin Negative (NEGATIVE) Urine Urobilinogen Normalmg/dL (NORMAL) Urine Leukocyte Esterase Negative (NEGATIVE) Urine RBC 0-2/hpf (0-2) Urine WBC 0-5/hpf (0-5) Urine Epithelial Cells Few/hpf (NONE-MOD) Urine Crystals None seen (NONE SEEN) Urine Bacteria None/hpf (NONE-FEW) Urine Hyaline Casts None/lpf (NONE) Urine Granular Casts None seen (NONE SEEN) Urine Waxy Casts None seen (NONE SEEN) Urine Red Blood Cell Casts None seen (NONE SEEN) Urine White Blood Cell Casts None seen (NONE SEEN) Urine Mucus None seen (None Seen) Urine Trichomonas None seen (NONE SEEN) Urine Yeast None (NONE SEEN) Urinalysis Comment None Urine Culture Reflexed Not indicated CT Abd / Pelvis Interpretation IMPRESSION: Colonic obstipation bilaterally and extending into the sigmoid colon where diverticulosis is present but without acute diverticulitis. A definite source of current symptoms is not seen. Note is made of a 1.7 cm densely calcified gallstone within the gallbladder lumen but without associated biliary distention or acute cholecystitis. A normal or abnormal appendix could not be located, but there is no secondary CT evidence of acute appendicitis. Dictated by: Vijay Quinn M.D. on 12/21/2016 at 21:47 Approved by: Vijay Quinn M.D. on 12/21/2016 at 21:51 Interpretation / Wet Read by: Interpret - Radiologist Re-Eval/Medical Decision Source of Hx: Old records Time of Eval: 22:18 Patient Status: Condition improved Re-Evaluation/Progress Note: Pt rechecked, who is resting comfortably. The diagnosis and plan for discharge was discussed. The pt understands and agrees with the plan. All questions are addressed at this time. Counseled Regarding: Diagnosis, Lab results, Need for follow-up, When/why to return to ED Discharge & Departure Primary Impression: Constipation Disposition: Home Discharge Condition All VS Reviewed: Yes Condition: Stable Patient Instructions: Constipation (ED) Additional Instructions: Thank you for allowing us to be a part of your care. The symptoms you have been experiencing are related to constipation. No evidence of any other dangerous condition is discovered today. I recommend that you take one full bottle (approximately 10 ounces) of magnesium citrate. This is an [id number] product that you can purchase at nearly any full-service grocery store. You will find a located among the other laxatives. If this does not work after a number of hours, I recommend the use of Suprep which is a prescription item and has been sent electronically to the [facility] pharmacy on [address]. This essentially always works. To prevent constipation and future, I recommend MiraLAX once daily as directed on the packaging. Call your primary care physician to arrange a follow up appointment next week. Return to the emergency department if you develop any new or worsening symptoms. Referrals: Lashaun Ortiz MD (PCP) Scribe Attestation Portions of this note were transcribed by Ganesh Andrea. I, Dr. Gil personally performed the history, physical exam and medical decision-making; I reviewed and confirmed the accuracy of the information in the transcribed note. copies to: Lashaun Ortiz MD, Kirk H MD Dec 21, 2016 19:20 GANESH ANDREA Dec 21, 2016 20:00
[2016-12-21] MEDS ORDERED: Ondansetron 2 mg/mL 2 mL Inj IVPUSH ONE (19:55)
[2016-12-21 19:58] LABS: BASOPHILS % (AUTO) 0.3 % (0-3); EOSINOPHILS % (AUTO) 1.7 % (0-5); MONOCYTES % (AUTO) 6.8 % (4-12); NEUTROPHILS % (AUTO) 71.5 % (40-74); Platelet Count 102 bil/L (150-400)
[2016-12-21] MEDS ORDERED: Iohexol 300 mg/mL 30 mL Inj PO ONE (20:05)
[2016-12-21 20:08] LABS: Magnesium 1.6 mg/dL (1.6-2.6)
[2016-12-21 21:43] VITALS: BP 137/105; PULSE 71; RESP 18; O2SAT 96
--- NOTE | 2016-12-21 21:52 | DRSVH ---
PROCEDURE: CT ABDOMEN AND PELVIS WITH CONTRAST ([id number]) INDICATIONS: lower abdominal pain TECHNIQUE: After the administration of oral and intravenous contrast, 5 mm thick sections acquired from the diap hragms to the symphysis. 5 mm thick coronal and sagittal reformats were performed. For radiation do se reduction, the following was used: automated exposure control, adjustment of mA and/or kV accordi ng to patient size. COMPARISON: [facility], CT, ABD/PELVIS W/CON ([facility]), 03/03/2010, 22:49. FINDINGS: Image quality: Excellent. ABDOMEN: Lung bases: Lung bases are clear except for mild atelectasis adjacent to a moderate right simple irene earing free flowing pleural effusion measuring up to 4.7 cm in AP dimension inferiorly. Heart size i s normal. Solid organs: Liver and spleen are normal in size and enhancement. Gallbladder contains a 1.7 cm de nsely calcified gallstone but there is no associated earlier distention or evidence of acute cholecys titis. Biliary system is non-dilated. Pancreas enhances normally. No adrenal nodules. Kidneys are normal in size and enhancement, without hydronephrosis. Peritoneum and bowel: Stomach, small bowel, and colon loops are normal in caliber and wall thickness . No free fluid or air. There is colonic obstipation both on the right in the left, and extending i nto the sigmoid colon Nodes and vessels: No retroperitoneal or mesenteric adenopathy. Aorta and inferior vena cava are no rmal in caliber. Miscellaneous: No ventral hernias. PELVIS: Genitourinary: Bladder wall thickness is normal. Miscellaneous: No inguinal hernias or adenopathy. Sigmoid diverticulosis without acute diverticulit is. No sign of appendicitis. Bones: No suspicious bony lesions. No vertebral body compression fractures. IMPRESSION: Colonic obstipation bilaterally and extending into the sigmoid colon where diverticulosi s is present but without acute diverticulitis. A definite source of current symptoms is not seen. N ote is made of a 1.7 cm densely calcified gallstone within the gallbladder lumen but without associat ed biliary distention or acute cholecystitis. A normal or abnormal appendix could not be located, but there is no secondary CT evidence of acute ap pendicitis. Dictated by: Vijay Quinn M.D. on 12/21/2016 at 21:47 Approved by: Vijay Quinn M.D. on 12/21/2016 at 21:51
[2016-12-21 22:08] LABS: APPEARANCE,URINE CLEAR (CLEAR,HAZY); COLOR,URINE YELLOW (YELLOW); OCCULT BLOOD,URINE TRACE (NEGATIVE); UROBILINOGEN,URINE NORMAL (NORMAL)
[2016-12-21] MEDS ORDERED: SODI354S PO (22:26)
[2016-12-21 22:32] VITALS: BP 129/72; PULSE 109; RESP 20; O2SAT 98
== END 2016-12-21 22:46 | disposition home or self-care (01) ==
LOC: SED 18:32
DX: K59.00 Constipation, unspecified (principal); I10 Essential (primary) hypertension; E11.9 Type 2 diabetes mellitus without complications; E78.5 Hyperlipidemia, unspecified; I25.810 Atherosclerosis of coronary artery bypass graft(s) without angina pectoris; Z90.710 Acquired absence of both cervix and uterus; Z95.1 Presence of aortocoronary bypass graft; Z95.5 Presence of coronary angioplasty implant and graft; Z88.2 Allergy status to sulfonamides; Z88.8 Allergy status to other drugs, medicaments and biological substances
CPT/HCPCS: 36415; 74177; 80053; 81000; 83690; 83735; 85025; 96374; 99285; J2405; Q9967